=== PATIENT | female | born 1980 ===

== ENCOUNTER 2017-08-15 10:09 | Inpatient (IN) | payer OTHER ==
[2017-08-15 10:18] VITALS: BMI 31.6
--- NOTE | 2017-08-15 11:00 | ED PDOC ---
HPI: Headache Time Seen by Provider: 08/15/17 10:23 Chief Complaint (Nursing): Headache History Per: Patient, [employer] ([employer] [place] [id number]) History/Exam Limitations: language barrier Onset/Duration Of Symptoms: Days (2), Gradual Severity: Moderate Quality: Dull Preceeding Symptoms: None Associated Symptoms: Extremity Weakness (right arm). 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, 2 days ago pt awoke with right hand numbness and weakness sx are constant and unchanged pt states nml gait also facial numbness NIHSS Stroke Scale - Date/Time Evaluation Performed Date Performed: 08/15/17 When Was NIHSS Performed: Baseline - How Severe is the Stroke Level of Consciousness: 0=Alert LOC to Questions: 0=Both comments correct LOC to commands: 0=Obeys both correctly Best Gaze: 0=Normal Visual: 0=No visual loss Facial: 2=Partial (lower face paralysis) (chronic per pt) Motor Arm - Left: 0=No drift Motor Arm - Right: 1=Drift noted before 10 sec Motor Leg - Left: 0=No drift Motor Leg - Right: 0=No drift Limb Ataxia: 0=Absent Sensory: 0=Normal Best Language: 0=No aphasia Dysarthia: 0=Normal articulation Extinction & Inattention (Neglect): 0=Normal, no object Score: 3 Past Medical History Reviewed: Historical Data, Nursing Documentation, Vital Signs Vital Signs: Last Vital Signs Temp 97.7 F 08/15/17 10:19 Pulse 57 L 08/15/17 10:19 Resp 18 08/15/17 10:19 BP 123/87 08/15/17 10:19 Pulse Ox 97 08/15/17 10:19 - Medical History PMH: No Chronic Diseases - Family History Family History: States: Unknown Family Hx - Living Arrangements Living Arrangements: With Family - Social History Current smoker - smoking cessation education provided: No - Home Medications Home Medications: Ambulatory Orders Medication Instructions Recorded Multivitamin/Iron/Folic Acid 1 tab PO DAILY 08/15/17 [Centrum Complete Multivit Tab] - Allergies Allergies/Adverse Reactions: Allergies Allergy/AdvReac Type Severity Reaction Status Date / Time No Known Allergies Allergy Verified 08/15/17 10:28 Review of Systems ROS Statement: Except As Marked, All Systems Reviewed And Found Negative Constitutional: Negative for: Fever, Chills Eyes: Negative for: Vision Change Cardiovascular: Negative for: Chest Pain, Palpitations Respiratory: Negative for: Cough, Shortness of Breath Gastrointestinal: Negative for: Nausea, Vomiting, Abdominal Pain Musculoskeletal: Negative for: Neck Pain Neurological: Positive for: Weakness (right face chronic right arm new), Numbness (right facial and arm new). Negative for: Confusion, Seizures, Altered Mental Status, Headache, Dizziness Physical Exam - Reviewed Nursing Documentation Reviewed: Yes Vital Signs Reviewed: Yes - Physical Exam Appears: Positive for: Uncomfortable Head Exam: Positive for: ATRAUMATIC, NORMAL INSPECTION, NORMOCEPHALIC Eye Exam: Positive for: Normal appearance, EOMI, PERRL Neck: Positive for: Normal, Painless ROM, Supple Cardiovascular/Chest: Positive for: Regular Rate, Rhythm, Chest Non Tender. Negative for: Edema, Gallop, Murmur, Bradycardia, Tachycardia Respiratory: Positive for: Normal Breath Sounds. Negative for: Decreased Breath Sounds, Accessory Muscle Use, Crackles, Rhonchi, Stridor, Wheezing Pulses-Radial (L): 2+ Pulses-Radial (R): 2+ Gastrointestinal/Abdominal: Positive for: Normal Exam, Bowel Sounds, Soft. Negative for: Tenderness Back: Positive for: Normal Inspection. Negative for: L CVA Tenderness, R CVA Tenderness Extremity: Positive for: Normal ROM. Negative for: Tenderness, Pedal Edema, Calf Tenderness, Capillary Refill, Deformity, Swelling Neurologic/Psych: Positive for: Alert, tail board worker II-XII (right facial droop chrnic per pt all other nml), Oriented, Motor/Sensory Deficits (right arm with drift at 5 seconds), Mood/Affect, Cerebellar Tests (nml), Gait (steady), Facial Droop (right). Negative for: Aphasia - Laboratory Results Result Diagrams: 08/15/17 11:40 08/15/17 11:40 - ECG ECG: Positive for: Interpreted By Me ECG Rhythm: Positive for: Normal QRS, Normal ST Segment, Sinus Bradycardia (52) Interpretation Of Abn EKG: no evidence of ischemia O2 Sat by Pulse Oximetry: 97 Pulse Ox Interpretation: Normal - Radiology X-Ray: Interpreted by Me X-Ray Interpretation: No Acute Disease - Progress ED Course And Treament: per neuro will order mri and admit, hospitalist accepts/ pt not a tpa candidate due to out of treatment window Re-evaluation Time: 12:00 Condition: Improved Disposition - Clinical Impression Clinical Impression: CVA (cerebral vascular accident) - Patient ED Disposition Is Patient to be Admitted: Yes Counseled Patient/Family Regarding: Studies Performed, Diagnosis, Need For Followup - Disposition Disposition Time: 12:00 Condition: STABLE - Pt Status Changed To: Hospital Disposition Of: Observation - POA Present On Arrival: None
[2017-08-15 11:24] LABS: RBC URINE < 1 /hpf (0-3); URINE BACTERIA RARE (<OCC); URINE BILIRUBIN NEGATIVE (NEGATIVE); URINE BLOOD NEGATIVE (NEGATIVE); URINE COLOR YELLOW (YELLOW); URINE GLUCOSE (UA) NEG (Normal); URINE KETONE NEGATIVE (NEGATIVE); URINE LEUKOCYTE ESTERASE NEG Leu/uL (Negative); URINE PROTEIN NEGATIVE (NEGATIVE); URINE UROBILINOGEN 0.2-1.0 mg/dL (0.2-1.0); WBC URINE 1 /hpf (0-5)
--- NOTE | 2017-08-15 11:40 | CT ---
PROCEDURE: CT scan brain 08/15/2017 HISTORY: Weakness. COMPARISON: No prior study available for comparison TECHNIQUE: Axial computed tomography images were obtained through the head/brain without intravenous contrast. Radiation dose: Total exam DLP = 714.82 mGy-cm. This CT exam was performed using one or more of the following dose reduction techniques: Automated exposure control, adjustment of the mA and/or kV according to patient size, and/or use of iterative reconstruction technique. FINDINGS: HEMORRHAGE: No acute parenchymal, subarachnoid nor extra-axial hemorrhage. BRAIN: There is a somewhat wedge-shaped area of low attenuation involving the left posterior superior parietal cortical and subcortical white matter best seen on axial series 4 image number [id number] 33. While this could represent some volume averaging artifact, the possibility of an age-indeterminate infarct cannot be excluded. Followup MRI recommended VENTRICLES: No obstructive type hydrocephalus. CALVARIUM: No acute calvarial fractures PARANASAL SINUSES: Unremarkable as visualized. No significant inflammatory changes. MASTOID AIR CELLS: Unremarkable as visualized. No inflammatory changes. OTHER FINDINGS: None. IMPRESSION: No acute intracranial hemorrhage. . Questionable on age-indeterminate infarct left posterior superior parietal cortical/subcortical white matter near the vertex. Followup MRI recommended note these findings were discussed with Dr. Servin at approximately 11:40 a.m. with written down and read back verification.
[2017-08-15 11:45] LABS: BASO % 0.4 % (0.0-2.0); EOS # 0.2 K/uL (0.0-0.7); EOS % 3.2 % (0.0-4.0); HEMATOCRIT 30.6 % (34.0-47.0); LYMPH # 1.7 K/uL (1.0-4.3); LYMPH % 26.8 % (20.0-40.0); MEAN CELL VOLUME 69.9 fl (81.0-99.0); MEAN CORPUSCULAR HEMOGLOBIN 21.4 pg (27.0-31.0); MEAN CORPUSCULAR HGB CONC 30.6 g/dL (33.0-37.0); MEAN PLATELET VOLUME 9.8 fl (7.2-11.7); MONO # 0.4 K/uL (0.0-0.8); MONO % 6.1 % (0.0-10.0); NEUT # 4.1 K/uL (1.8-7.0); NEUT % 63.5 % (50.0-75.0); NRBC % 0.1 % (0.0-0.0); RED CELL DISTRIBUTION WIDTH 20.2 % (11.5-14.5); WHITE BLOOD COUNT 6.4 K/uL (4.8-10.8)
[2017-08-15 11:52] LABS: PARTIAL THROMBOPLASTIN TIME 31.1 Seconds (25.6-37.1)
[2017-08-15 12:00] LABS: ALB/GLOB RATIO 1.1 (1.0-2.1); ALKALINE PHOSPHATASE 69 U/L (38-126); ALT/SGPT 33 U/L (9-52); AST/SGOT 19 U/L (14-36); BILIRUBIN,TOTAL 0.2 mg/dl (0.2-1.3); BLOOD UREA NITROGEN 13 mg/dl (7-17); CARBON DIOXIDE 26 mmol/L (22-30); CHLORIDE 106 mmol/L (98-107); CHOLESTEROL 167 mg/dL (0-199); GFR AFRICAN-AMERICAN > 60; GLUCOSE,RANDOM 100 mg/dL (65-105); SODIUM 135 mmol/l (132-148); TOTAL PROTEIN 7.1 G/DL (6.3-8.2)
--- NOTE | 2017-08-15 12:31 | RAD ---
HISTORY: weak COMPARISON: No prior. FINDINGS: LUNGS: No active pulmonary disease. PLEURA: No significant pleural effusion identified, no pneumothorax apparent. CARDIOVASCULAR: Normal. OSSEOUS STRUCTURES: No significant abnormalities. VISUALIZED UPPER ABDOMEN: Normal. OTHER FINDINGS: None. IMPRESSION: No active disease.
--- NOTE | 2017-08-15 13:10 | CP.PCM.HP ---
History of Present Illness - History of Present Illness History of Present Illness: 37 year old female with no PMHx of chronic right sided facial droop x 16 years seen in ED complaining of right arm numbness and weakness. Patient states that two days ago she had a severe headache that worsened yesterday and was accompanied with tingling, numbness and paralysis in her right arm to the point that she can not write properly. Patient also states that she has numbness in the left side of her neck. She denies any recent head trauma, history of head trauma or history of stroke. She denies any further complaints at this time and says that her headache has diminished. Patient states that her chronic facial paralysis began after she moved to [place] 16 years ago and she was told by doctors that it was due to the stress of leaving her son back in her home country. Patient states that with physical therapy the paralysis improved but that she never fully recovered her motor abilities in her face. She denies N/V/F /C/CP/SOB/posterior calf pain/abdominal pain/constipation/ urinary retention. She denies abnormal gait. Meds: Denies All: NKDA PSH: FH: Unremarkable SH: Denies tobacco, ETOH and illicit drug use Present on Admission - Present on Admission Any Indicators Present on Admission: No Review of Systems - Review of Systems Review of Systems: ROS as per HPI. All other systems reviewed and found to be negative Past Patient History - Past Social History Smoking Status: Never Smoked - CARDIAC Hx Cardiac Disorders: No - PULMONARY Hx Respiratory Disorders: No - NEUROLOGICAL Hx Neurological Disorder: Yes (Facial paralysis) - HEENT Hx HEENT Problems: No - RENAL Hx Chronic Kidney Disease: No - ENDOCRINE/METABOLIC Hx Endocrine Disorders: No - HEMATOLOGICAL/ONCOLOGICAL Hx Blood Disorders: No - INTEGUMENTARY Hx Dermatological Problems: No - MUSCULOSKELETAL/RHEUMATOLOGICAL Hx Musculoskeletal Disorders: No - GENITOURINARY/GYNECOLOGICAL Hx Genitourinary Disorders: No - PSYCHIATRIC Hx Psychophysiologic Disorder: No - SURGICAL HISTORY Hx Surgeries: No - ANESTHESIA Hx Anesthesia: No Meds Allergies/Adverse Reactions: Allergies Allergy/AdvReac Type Severity Reaction Status Date / Time No Known Allergies Allergy Verified 08/15/17 10:28 Physical Exam - Constitutional Appears: Well, Non-toxic, No Acute Distress - Head Exam Head Exam: ATRAUMATIC, NORMOCEPHALIC - Eye Exam Eye Exam: EOMI, PERRL Pupil Exam: PERRL - ENT Exam ENT Exam: Mucous Membranes Moist - Neck Exam Additional comments: Paresthesia to left side of neck - Respiratory Exam Respiratory Exam: Clear to Auscultation Bilateral, NORMAL BREATHING PATTERN - Cardiovascular Exam Cardiovascular Exam: REGULAR RHYTHM - GI/Abdominal Exam GI & Abdominal Exam: Soft. absent: Distended, Firm, Guarding - Rectal Exam Rectal Exam: Deferred - Extremities Exam Additional comments: Right sided upper extremity weakness. Numbness noted to right arm from shoulder to distal fingers. Minimal loss of coordination with right upper extremity - Neurological Exam Neurological exam: Alert, Motor Sensory Deficit, Oriented x3 - Psychiatric Exam Psychiatric exam: Normal Affect, Normal Mood - Skin Skin Exam: Intact, Normal Color, Warm Results - Vital Signs Recent Vital Signs: Last Vital Signs Temp 97.7 F 08/15/17 10:19 Pulse 57 L 08/15/17 10:19 Resp 18 08/15/17 10:19 BP 123/87 08/15/17 10:19 Pulse Ox 97 08/15/17 11:02 - Labs Result Diagrams: 08/15/17 11:40 08/15/17 11:40 Labs: Laboratory Results - last 24 hr 08/15/17 08/15/17 08/15/17 10:44 11:08 11:40 WBC RBC Hgb Hct MCV MCH MCHC RDW Plt Count MPV Neut % (Auto) Lymph % (Auto) [place] % (Auto) Eos % (Auto) Baso % (Auto) Neut # Lymph # [place] # Eos # Baso # PT INR APTT Sodium 135 Potassium 4.0 Chloride 106 Carbon Dioxide 26 Anion Gap 7 L BUN 13 Creatinine 0.6 L Est GFR ( Amer) > 60 Est GFR (Non-Af Amer) > 60 POC Glucose (mg/dL) 93 Random Glucose 100 Calcium 9.0 Total Bilirubin 0.2 AST 19 ALT 33 Alkaline Phosphatase 69 Troponin I < 0.0120 NT-Pro-B Natriuret Pep 96.1 Total Protein 7.1 Albumin 3.8 Globulin 3.3 Albumin/Globulin Ratio 1.1 Triglycerides 135 Cholesterol 167 LDL Cholesterol Direct 91 HDL Cholesterol 38 Urine Color Yellow Urine Clarity Cloudy Urine pH 6.0 Ur Specific [place] 1.011 Urine Protein Negative Urine Glucose (UA) Neg Urine Ketones Negative Urine Blood Negative Urine Nitrate Negative Urine Bilirubin Negative Urine Urobilinogen 0.2-1.0 Ur Leukocyte Esterase Neg Urine RBC (Auto) < 1 Urine Microscopic WBC 1 Ur Squamous Epith Cells 2 Urine Bacteria Rare Blood Type Blood Type Confirm Antibody Screen BBK History Checked 08/15/17 08/15/17 08/15/17 11:40 11:40 11:40 WBC 6.4 RBC 4.38 Hgb 9.4 L Hct 30.6 L MCV 69.9 L D MCH 21.4 L MCHC 30.6 L RDW 20.2 H Plt Count 293 MPV 9.8 Neut % (Auto) 63.5 Lymph % (Auto) 26.8 [place] % (Auto) 6.1 Eos % (Auto) 3.2 Baso % (Auto) 0.4 Neut # 4.1 Lymph # 1.7 [place] # 0.4 Eos # 0.2 Baso # 0.0 PT 10.9 INR 1.0 APTT 31.1 Sodium Potassium Chloride Carbon Dioxide Anion Gap BUN Creatinine Est GFR ( Amer) Est GFR (Non-Af Amer) POC Glucose (mg/dL) Random Glucose Calcium Total Bilirubin AST ALT Alkaline Phosphatase Troponin I NT-Pro-B Natriuret Pep Total Protein Albumin Globulin Albumin/Globulin Ratio Triglycerides Cholesterol LDL Cholesterol Direct HDL Cholesterol Urine Color Urine Clarity Urine pH Ur Specific [place] Urine Protein Urine Glucose (UA) Urine Ketones Urine Blood Urine Nitrate Urine Bilirubin Urine Urobilinogen Ur Leukocyte Esterase Urine RBC (Auto) Urine Microscopic WBC Ur Squamous Epith Cells Urine Bacteria Blood Type O POSITIVE Blood Type Confirm Antibody Screen Negative BBK History Checked No verified bt 08/15/17 12:00 WBC RBC Hgb Hct MCV MCH MCHC RDW Plt Count MPV Neut % (Auto) Lymph % (Auto) [place] % (Auto) Eos % (Auto) Baso % (Auto) Neut # Lymph # [place] # Eos # Baso # PT INR APTT Sodium Potassium Chloride Carbon Dioxide Anion Gap BUN Creatinine Est GFR ( Amer) Est GFR (Non-Af Amer) POC Glucose (mg/dL) Random Glucose Calcium Total Bilirubin AST ALT Alkaline Phosphatase Troponin I NT-Pro-B Natriuret Pep Total Protein Albumin Globulin Albumin/Globulin Ratio Triglycerides Cholesterol LDL Cholesterol Direct HDL Cholesterol Urine Color Urine Clarity Urine pH Ur Specific [place] Urine Protein Urine Glucose (UA) Urine Ketones Urine Blood Urine Nitrate Urine Bilirubin Urine Urobilinogen Ur Leukocyte Esterase Urine RBC (Auto) Urine Microscopic WBC Ur Squamous Epith Cells Urine Bacteria Blood Type Blood Type Confirm O POSITIVE Antibody Screen BBK History Checked Assessment & Plan - Assessment and Plan (Free Text) Assessment: 37 year old female with history of right sided facial parasthesia seen in ED for new onset right arm numbness and weakness. Head CT performed with f/u carotid artery US and MRI of brain showing multiple small foci of diffusion restriction in the left brain with the largest focus seen at the posterior left parietal lobe. Findings suggestive of acute embolic infarctions. No evidence of acute intracranial hemmorhage, mass effect or midline shift. Echo with bubble study ordered to r/o foramen ovale and thrombus Plan: 1. Right arm numbness and weakness, acute - R/o CVA - Head CT: No acute intracranial hemmorhage. Questionable on age indeterminate infarct left posterior superior parietal cortical/subcortical white matter near the vertex. F/u MRI recommended - MRI brain doppler: Multiple small foci of diffusion restriction in the left brain with the largest focus seen at the posterior left parietal lobe. Findings suggestive of acute embolic infarctions. No evidence of acute intracranial hemmorhage, mass effect or midline shift. - Carotid artery US: No acute abnormalities noted - Neurologist consult placed - F/u echo with bubble study to r/o foramen ovale and thrombus - Admit to tele - Aspirin 300 mg qd - Continue [employer] Healthy diet - Neuro check q4 - Vital signs q4 2. DVT prophylaxis - SCDs - Cont Aspirin - Date & Time Date: 08/15/17 Time: 15:13
--- NOTE | 2017-08-15 13:25 | US ---
PROCEDURE: Duplex ultrasound of the carotid and vertebral arteries. HISTORY: right arm numbness COMPARISON: None available. TECHNIQUE: Grayscale and duplex Doppler evaluation of the cervical carotid and vertebral arteries were performed. The common carotid, carotid bifurcations and cervical ICA and proximal ECA were evaluated. The vertebral arteries were evaluated for gross patency and direction. FINDINGS: RIGHT CAROTID ARTERIES: Common Carotid Artery: Normal. Maximal flow velocity of 109.2 cm/s. Carotid Bifurcation: Normal. Internal Carotid Artery:Normal. Maximal flow velocity of 90.3 cm/s. External Carotid Artery (proximal branches): Normal. Maximal flow velocity of 133.4 cm/s. ICA/CCA Ratio: 0.8 LEFT CAROTID ARTERIES: Common Carotid Artery: Normal. Maximal flow velocity of 117.7 cm/s. Carotid Bifurcation: Normal. Internal Carotid Artery:Normal. Maximal flow velocity of 76.2 cm/s. External Carotid Artery (proximal branches): Normal. Maximal flow velocity of 92.4 cm/s. ICA/CCA Ratio: 0.6 VERTEBRAL ARTERIES: Right Vertebral Artery: Patent. Antegrade flow. Left Vertebral Artery: Patent. Antegrade flow. OTHER FINDINGS: None. IMPRESSION: Normal Duplex Doppler of the cervical carotid and vertebral arteries.
--- NOTE | 2017-08-15 14:53 | MRI ---
PROCEDURE: MRI BRAIN WITHOUT CONTRAST HISTORY: right sided weakness COMPARISON: Comparison is made to previous same-day CT of the head without TECHNIQUE: Multiplanar, multisequence MR images of the brain were obtained without intravenous contrast enhancement. FINDINGS: HEMORRHAGE: None DWI: There are multiple small foci of diffusion restriction noted in the left brain. The largest focus is seen at the left posterior parietal lobe. There are also small foci of diffusion restriction seen at the left frontal and parietal lobe. Findings suggestive of embolic infarction. BRAIN PARENCHYMA: No mass effect or edema. No atrophy or chronic microvascular ischemic changes. VENTRICLES: Unremarkable. No hydrocephalus. CRANIUM: Unremarkable. ORBITS: Grossly unremarkable. PARANASAL SINUSES/MASTOIDS: Clear VASCULAR SYSTEM: Skull base flow voids intact. OTHER FINDINGS: None. IMPRESSION: Multiple small foci of diffusion restriction in the left brain with the largest focus is seen at the posterior left parietal lobe. Findings suggestive of acute embolic infarctions. No evidence of acute intracranial hemorrhage mass effect or midline shift. The above findings were reported to and discussed with the emergency room physician Dr. Servin at 2:45 p.m. on 08/15/2017.
--- NOTE | 2017-08-15 21:09 | CP.PCM.CON ---
History of Present Illness - History of Present Illness History of Present Illness: Ms. Bowman is a 37-year-old woman with a previous history of chronic left facial droop that occurred about 16 years ago when she first moved to this country, but has not had any other significant health issues since. She states that on Tuesday, she developed the sudden onset of a headache that was associated with right side face, arm and leg tingling and weakness. She presented to the ED today and an MRI of the brain was done, which showed multiple acute appearing left frontal/parietal lobe infarcts. She was started on aspirin, statin and admitted for stroke work-up. When I saw the patient, she denied headache, and did not have any neck pain/stiffness. She denied nausea, visual changes, photophobia, hearing loss, or vertigo. Review of Systems - Review of Systems All systems: reviewed and no additional remarkable complaints except Past Patient History - Past Medical History & Family History Past Medical History?: Yes - Past Social History Smoking Status: Never Smoked - CARDIAC Hx Cardiac Disorders: No - PULMONARY Hx Respiratory Disorders: No - NEUROLOGICAL Hx Neurological Disorder: Yes (Facial paralysis) - HEENT Hx HEENT Problems: No - RENAL Hx Chronic Kidney Disease: No - ENDOCRINE/METABOLIC Hx Endocrine Disorders: No - HEMATOLOGICAL/ONCOLOGICAL Hx Blood Disorders: No - INTEGUMENTARY Hx Dermatological Problems: No - MUSCULOSKELETAL/RHEUMATOLOGICAL Hx Musculoskeletal Disorders: No Hx Falls: No - GENITOURINARY/GYNECOLOGICAL Hx Genitourinary Disorders: No - PSYCHIATRIC Hx Psychophysiologic Disorder: No Hx Substance Use: No - SURGICAL HISTORY Hx Surgeries: No - ANESTHESIA Hx Anesthesia: No Meds Allergies/Adverse Reactions: Allergies Allergy/AdvReac Type Severity Reaction Status Date / Time No Known Allergies Allergy Verified 08/15/17 10:28 - Medications Medications: Current Medications Acetaminophen (Tylenol 325mg Tab) 650 mg PO Q6 PRN PRN Reason: Pain, Mild (1-3) Acetaminophen (Tylenol 325mg Tab) 650 mg PO Q6 PRN PRN Reason: Fever >100.4 F Aspirin (Aspirin Supp) 300 mg [place] DAILY [facility] Last Admin: 08/15/17 14:40 Dose: Not Given Aspirin (Aspirin Chewable) 81 mg PO DAILY [facility] Atorvastatin Calcium (Lipitor) 20 mg PO HS [facility] Enoxaparin Sodium (Lovenox) 40 mg SC DAILY [facility] PRN Reason: Protocol Ondansetron HCl (Zofran Inj) 4 mg IVP Q6 PRN PRN Reason: Nausea/Vomiting Pantoprazole Sodium (Protonix Ec Tab) 40 mg PO DAILY [facility] Physical Exam - Constitutional Appears: Well - Head Exam Head Exam: ATRAUMATIC, NORMAL INSPECTION, NORMOCEPHALIC - Eye Exam Eye Exam: EOMI, Normal appearance, PERRL - ENT Exam ENT Exam: Mucous Membranes Moist, Normal Exam - Neck Exam Neck exam: Positive for: Normal Inspection - Respiratory Exam Respiratory Exam: Clear to Auscultation Bilateral, NORMAL BREATHING PATTERN - Cardiovascular Exam Cardiovascular Exam: REGULAR RHYTHM, +S1, +S2 - GI/Abdominal Exam GI & Abdominal Exam: Normal Bowel Sounds, Soft. absent: Tenderness - Rectal Exam Rectal Exam: Deferred - Extremities Exam Extremities exam: Positive for: normal inspection - Neurological Exam Neurological exam: Alert, CN II-XII Intact, Normal Gait, Oriented x3 Additional comments: NIHSS = 3 - Expanded Neurological Exam Expanded Patient oriented to: person, place, time Cranial nerves: EOM's Intact: Normal, Facial Sensation: Abnormal Right, Nystagmus: Normal, Tongue Deviation: Normal Cerebellar Function: Finger to Nose: Abnormal Right Upper motor neuron: Babinski Sign: Abnormal Right, Pronator Drift: Abnormal Right Sensory exam: Lower Extremity Light Touch: Abnormal Right, Lower Extremity Pin Prick: Abnormal Right, Upper Extremity Light Touch: Abnormal Right, Upper Extremity Pin Prick: Abnormal Right Neuro motor strength exam: Left Upper Extremity: 5, Right Upper Extremity: 4, Left Lower Extremity: 5, Right Lower Extremity: 4 DTR: Bicep Left: 3+, Bicep Right: 3+, Patellar Left: 3+, Patellar Right: 3+ - Psychiatric Exam Psychiatric exam: Normal Affect, Normal Mood - Skin Skin Exam: Dry, Intact, Normal Color, Warm Results - Vital Signs Recent Vital Signs: Last Vital Signs Temp 98.9 F 08/15/17 19:26 Pulse 58 L 08/15/17 19:26 Resp 17 08/15/17 19:26 BP 100/65 08/15/17 19:26 Pulse Ox 98 08/15/17 19:26 - Labs Result Diagrams: 08/15/17 11:40 08/15/17 11:40 Labs: Laboratory Results - last 24 hr 08/15/17 08/15/17 08/15/17 10:44 11:08 11:40 WBC RBC Hgb Hct MCV MCH MCHC RDW Plt Count MPV Neut % (Auto) Lymph % (Auto) Parmer % (Auto) Eos % (Auto) Baso % (Auto) Neut # Lymph # Parmer # Eos # Baso # PT INR APTT Sodium 135 Potassium 4.0 Chloride 106 Carbon Dioxide 26 Anion Gap 7 L BUN 13 Creatinine 0.6 L Est GFR ( Amer) > 60 Est GFR (Non-Af Amer) > 60 POC Glucose (mg/dL) 93 Random Glucose 100 Hemoglobin A1c Calcium 9.0 Total Bilirubin 0.2 AST 19 ALT 33 Alkaline Phosphatase 69 Troponin I < 0.0120 NT-Pro-B Natriuret Pep 96.1 Total Protein 7.1 Albumin 3.8 Globulin 3.3 Albumin/Globulin Ratio 1.1 Triglycerides 135 Cholesterol 167 LDL Cholesterol Direct 91 HDL Cholesterol 38 Vitamin B12 25-OH Vitamin D Total Urine Color Yellow Urine Clarity Cloudy Urine pH 6.0 Ur Specific Overton 1.011 Urine Protein Negative Urine Glucose (UA) Neg Urine Ketones Negative Urine Blood Negative Urine Nitrate Negative Urine Bilirubin Negative Urine Urobilinogen 0.2-1.0 Ur Leukocyte Esterase Neg Urine RBC (Auto) < 1 Urine Microscopic WBC 1 Ur Squamous Epith Cells 2 Urine Bacteria Rare Blood Type Blood Type Confirm Antibody Screen BBK History Checked 08/15/17 08/15/17 08/15/17 11:40 11:40 11:40 WBC 6.4 RBC 4.38 Hgb 9.4 L Hct 30.6 L MCV 69.9 L D MCH 21.4 L MCHC 30.6 L RDW 20.2 H Plt Count 293 MPV 9.8 Neut % (Auto) 63.5 Lymph % (Auto) 26.8 Parmer % (Auto) 6.1 Eos % (Auto) 3.2 Baso % (Auto) 0.4 Neut # 4.1 Lymph # 1.7 Parmer # 0.4 Eos # 0.2 Baso # 0.0 PT 10.9 INR 1.0 APTT 31.1 Sodium Potassium Chloride Carbon Dioxide Anion Gap BUN Creatinine Est GFR ( Amer) Est GFR (Non-Af Amer) POC Glucose (mg/dL) Random Glucose Hemoglobin A1c 5.3 Calcium Total Bilirubin AST ALT Alkaline Phosphatase Troponin I NT-Pro-B Natriuret Pep Total Protein Albumin Globulin Albumin/Globulin Ratio Triglycerides Cholesterol LDL Cholesterol Direct HDL Cholesterol Vitamin B12 25-OH Vitamin D Total Urine Color Urine Clarity Urine pH Ur Specific Overton Urine Protein Urine Glucose (UA) Urine Ketones Urine Blood Urine Nitrate Urine Bilirubin Urine Urobilinogen Ur Leukocyte Esterase Urine RBC (Auto) Urine Microscopic WBC Ur Squamous Epith Cells Urine Bacteria Blood Type Blood Type Confirm Antibody Screen BBK History Checked 08/15/17 08/15/17 08/15/17 11:40 12:00 18:27 WBC RBC Hgb Hct MCV MCH MCHC RDW Plt Count MPV Neut % (Auto) Lymph % (Auto) Parmer % (Auto) Eos % (Auto) Baso % (Auto) Neut # Lymph # Parmer # Eos # Baso # PT INR APTT Sodium Potassium Chloride Carbon Dioxide Anion Gap BUN Creatinine Est GFR ( Amer) Est GFR (Non-Af Amer) POC Glucose (mg/dL) Random Glucose Hemoglobin A1c 5.3 Calcium Total Bilirubin AST ALT Alkaline Phosphatase Troponin I NT-Pro-B Natriuret Pep Total Protein Albumin Globulin Albumin/Globulin Ratio Triglycerides Cholesterol LDL Cholesterol Direct HDL Cholesterol Vitamin B12 25-OH Vitamin D Total Urine Color Urine Clarity Urine pH Ur Specific Overton Urine Protein Urine Glucose (UA) Urine Ketones Urine Blood Urine Nitrate Urine Bilirubin Urine Urobilinogen Ur Leukocyte Esterase Urine RBC (Auto) Urine Microscopic WBC Ur Squamous Epith Cells Urine Bacteria Blood Type O POSITIVE Blood Type Confirm O POSITIVE Antibody Screen Negative BBK History Checked No verified bt 08/15/17 08/15/17 18:29 18:29 WBC RBC Hgb Hct MCV MCH MCHC RDW Plt Count MPV Neut % (Auto) Lymph % (Auto) Parmer % (Auto) Eos % (Auto) Baso % (Auto) Neut # Lymph # Parmer # Eos # Baso # PT INR APTT Sodium Potassium Chloride Carbon Dioxide Anion Gap BUN Creatinine Est GFR ( Amer) Est GFR (Non-Af Amer) POC Glucose (mg/dL) Random Glucose Hemoglobin A1c Calcium Total Bilirubin AST ALT Alkaline Phosphatase Troponin I NT-Pro-B Natriuret Pep Total Protein Albumin Globulin Albumin/Globulin Ratio Triglycerides Cholesterol LDL Cholesterol Direct HDL Cholesterol Vitamin B12 > 1000 H 25-OH Vitamin D Total 24.7 L Urine Color Urine Clarity Urine pH Ur Specific Overton Urine Protein Urine Glucose (UA) Urine Ketones Urine Blood Urine Nitrate Urine Bilirubin Urine Urobilinogen Ur Leukocyte Esterase Urine RBC (Auto) Urine Microscopic WBC Ur Squamous Epith Cells Urine Bacteria Blood Type Blood Type Confirm Antibody Screen BBK History Checked Assessment & Plan (1) CVA (cerebral vascular accident) Assessment and Plan: Due to the patient's complaints of severe headache, and MRI of the brain consistent with acute ischemic stroke, we must consider the causes of cryptogenic stroke in a young patient. The differential includes reversible vasoconstriction syndrome, PACNS, cardio-embolic etiology, hypercoagulable states, as well as dissections. In addition to the labs/imaging that have already been done, I recommend the followin. Telemetry 2. Echocardiogram with bubble study 3. CTA of the head/neck 4. Hypercoagulable work-up 5. ESR/CRP, B12, folate, TSH/T3/T4, Vitamin D, prothrombin gene, factor V leiden , etc. 6. Prolonged cardiac monitoring 7. Aspirin 81 mg daily and Plavix 75 mg daily for 3 weeks per the CHANCE trial, then continue only aspirin 81 mg daily indefinitely 8. Lipitor 40 mg daily to maintain LDL< 70 9. PT/OT eval and treatment 10. Fluids with NS at 100 mL/hr 11. DVT Px 12. Case management consult Thank you. Status: Acute Priority: High
[2017-08-15 21:45] LABS: FOLATE > 20.0 ng/mL
[2017-08-16 05:24] LABS: HOMOCYSTEINE 5.5 umol/L (<10.4)
[2017-08-16 05:25] LABS: BASO % 0.3 % (0.0-2.0); EOS # 0.3 K/uL (0.0-0.7); EOS % 4.1 % (0.0-4.0); HEMATOCRIT 29.7 % (34.0-47.0); LYMPH # 2.9 K/uL (1.0-4.3); MEAN CELL VOLUME 70.2 fl (81.0-99.0); MEAN CORPUSCULAR HEMOGLOBIN 20.7 pg (27.0-31.0); MEAN CORPUSCULAR HGB CONC 29.4 g/dL (33.0-37.0); MEAN PLATELET VOLUME 9.2 fl (7.2-11.7); MONO # 0.6 K/uL (0.0-0.8); MONO % 8.8 % (0.0-10.0); NEUT % 43.8 % (50.0-75.0); NRBC % 0.2 % (0.0-0.0); RED CELL DISTRIBUTION WIDTH 19.9 % (11.5-14.5); WHITE BLOOD COUNT 6.8 K/uL (4.8-10.8)
[2017-08-16 05:49] LABS: BLOOD UREA NITROGEN 14 mg/dl (7-17); CALCIUM 8.8 mg/dL (8.4-10.2); CARBON DIOXIDE 27 mmol/L (22-30); CHLORIDE 106 mmol/L (98-107); GFR AFRICAN-AMERICAN > 60; GLUCOSE,RANDOM 85 mg/dL (65-105); POTASSIUM 4.2 MMOL/L (3.6-5.0); SODIUM 140 mmol/l (132-148)
[2017-08-16] MEDS: Enoxaparin 40 mg Syringe SC SCH (08:59)
[2017-08-16] MEDS: Pantoprazole 40 mg EC Tab PO SCH (09:00)
[2017-08-16 11:23] LABS: IRON 16 ug/dL (37-170)
--- NOTE | 2017-08-16 11:27 | CP.PCM.PN ---
Subjective - Date & Time of Evaluation Date of Evaluation: 08/16/17 Time of Evaluation: 11:22 - Subjective Subjective: 37 year old female with PMHx of chronic right sided facial droop x 16 years seen at bedside for acute embolic CVA. Patient is AAO x 3 and NAD resting comfortably in bed. States that she does not have a headache today and that her right arm weakness/numbness is improved. Patient also states that one year ago she saw a specialist for exceptionally heavy menstrual flow. States that she currently is menstruating x 4 days and needs to change her pad every half hour. Patient takes iron supplements for this condition. Denies any acute overnight events or new symptoms. Denies N/V/F/C/CP/SOB/posterior calf pain/constipation/ urinary retention. Objective - Vital Signs/Intake and Output Vital Signs (last 24 hours): Temp Pulse Resp BP Pulse Ox 98.4 F 87 18 105/71 99 08/16/17 07:56 08/16/17 07:56 08/16/17 07:56 08/16/17 07:56 08/16/17 07:56 - Medications Medications: Current Medications Acetaminophen (Tylenol 325mg Tab) 650 mg PO Q6 PRN PRN Reason: Pain, Mild (1-3) Last Admin: 08/15/17 22:18 Dose: 650 mg Acetaminophen (Tylenol 325mg Tab) 650 mg PO Q6 PRN PRN Reason: Fever >100.4 F Aspirin (Aspirin Supp) 300 mg [place] DAILY [facility] Last Admin: 08/15/17 14:40 Dose: Not Given Aspirin (Aspirin Chewable) 81 mg PO DAILY [facility] Last Admin: 08/16/17 08:59 Dose: 81 mg Atorvastatin Calcium (Lipitor) 40 mg PO DAILY [facility] Clopidogrel Bisulfate (Plavix) 75 mg PO DAILY [facility] Enoxaparin Sodium (Lovenox) 40 mg SC DAILY [facility] PRN Reason: Protocol Last Admin: 08/16/17 08:59 Dose: 40 mg Ondansetron HCl (Zofran Inj) 4 mg IVP Q6 PRN PRN Reason: Nausea/Vomiting Pantoprazole Sodium (Protonix Ec Tab) 40 mg PO DAILY [facility] Last Admin: 08/16/17 09:00 Dose: 40 mg - Labs Labs: 08/16/17 04:50 08/16/17 04:50 PT 10.9 Seconds (9.8-13.1) 08/15/17 11:40 INR 1.0 (0.9-1.2) 08/15/17 11:40 APTT 31.1 Seconds (25.6-37.1) 08/15/17 11:40 - Constitutional Appears: Well, Non-toxic, No Acute Distress - Head Exam Head Exam: ATRAUMATIC, NORMOCEPHALIC - Eye Exam Eye Exam: EOMI, PERRL Pupil Exam: PERRL - ENT Exam ENT Exam: Mucous Membranes Moist - Neck Exam Neck Exam: Normal Inspection. absent: Tenderness - Respiratory Exam Respiratory Exam: Clear to Ausculation Bilateral, NORMAL BREATHING PATTERN - Cardiovascular Exam Cardiovascular Exam: REGULAR RHYTHM - Rectal Exam Rectal Exam: Deferred - Extremities Exam Extremities Exam: Normal Capillary Refill, Normal Inspection - Neurological Exam Neurological Exam: Alert, Awake, Oriented x3 - Psychiatric Exam Psychiatric exam: Normal Affect, Normal Mood - Skin Skin Exam: Intact, Normal Color, Warm Assessment and Plan - Assessment and Plan (Free Text) Assessment: 37 year old female with history of right sided facial parasthesia seen in ED on 08/15 for new onset right arm numbness and weakness. Head CT performed with f/u carotid artery US and MRI of brain showing multiple small foci of diffusion restriction in the left brain with the largest focus seen at the posterior left parietal lobe. Findings suggestive of acute embolic infarctions. No evidence of acute intracranial hemmorhage, mass effect or midline shift. Carotid artery US 08/26: Normal duplex doppler of the cervical carotid and vertebral arteries. Brain MRI 08/16 shows multiple small foci of diffusion restriction in the left brain with the largest focus seen at the posterior left parietal lobe. Findings suggestive of acute embolic infarctions. Echo with bubble study ordered to r/o foramen ovale and thrombus. Results pending. Anemia workup and testing for hypercoagulable state ordered and pending. Plan: 1. Acute embolic CVA - Cardiology Consult: Dr. Ryan - Neuro Consult: Dr. Gimenez - Head CT: No acute intracranial hemmorhage. Questionable on age indeterminate infarct left posterior superior parietal cortical/subcortical white matter near the vertex. F/u MRI recommended - MRI brain doppler: Multiple small foci of diffusion restriction in the left brain with the largest focus seen at the posterior left parietal lobe. Findings suggestive of acute embolic infarctions. No evidence of acute intracranial hemmorhage, mass effect or midline shift. - Carotid artery US: No acute abnormalities noted - F/u Echo with bubble study - Continue Aspirin 81 mg PO daily - Continue Lipitor 40 mg PO daily - Continue Plavix 75 mg PO daily - Continue Lovenox 40 mg SC daily - PT/PTT/INR: 10.9/1.0/31.1 - F/u hypercoagulable workup - F/u drug screen - F/u BNP - F/u Beta HCG - F/u CRP - F/u ESR -F/u CTA head and neck - Homocysteine: 5.5 - Neuro check q4 - Vital signs q4 - Continue PT eval and treat 2. Anemia - H/H, 8.8/29.7 - Microcytic in nature - Iron: 16 - TIBC: 376 - % saturation: pending - Retic count 1.5 - F/u Ferritin - F/u Transferrin - Continue at home multivitamin/iron supplement - Monitor 3. DVT prophylaxis - SCDs - Continue Aspirin, Lipitor, Plavix
[2017-08-16] MEDS ORDERED: Iodixanol 320 MG/ML 100 ML BOTTLE IV ONE (12:00)
--- NOTE | 2017-08-16 15:54 | CT ---
PROCEDURE: CTA HEAD AND NECK WITH CONTRAST HISTORY: embolic stroke COMPARISON: Duplex ultrasound of the carotid arteries from 08/15/2017 TECHNIQUE: Initial noncontrast head CT was performed. Subsequently, CT angiogram of the head and neck were performed after the intravenous administration of 80 mL of Omnipaque 350. Contiguous 1.5mm thick images were obtained in the axial plane of the neck. 2-D coronal and sagittal MPR images were obtained. Imaging postprocessing was performed with 3-D images also obtained. A delayed contrast head CT was also obtained. This CT exam was performed using one or more of the following dose reduction techniques: Automated exposure control, adjustment of the mA and/or kV according to patient size, and/or use of iterative reconstruction technique. Contrast dose: 95 cc Visipaque 320 Radiation dose: Total exam DLP = 1061.02 mGy-cm. FINDINGS: This examination is of suboptimal diagnostic quality due to missed bolus. HEAD: Right: The intracranial internal carotid artery, and anterior and middle cerebral arteries are widely patent. Left: The intracranial internal carotid artery is widely patent. There is segmental severe narrowing of the proximal M1 segment and focal narrowing of the proximal A1 segment. Bilateral M2 branches are symmetric and patent. Posterior circulation: The visualized intracranial vertebral arteries, basilar artery and posterior cerebral arteries are widely patent. The right vertebral artery is hypoplastic, an anatomic variant Ther is no endoluminal filling defect to suggest thrombus. There is no intracranial saccular aneurysm. There is no abnormal enhancement on the postcontrast CT. NECK: There is a three vessel aortic arch. There is no stenosis at the origins of the great vessels at the level of the aortic arch. Right Carotid: On the right, the common carotid, internal carotid and external carotid arteries are widely patent. There is no hemodynamically significant stenosis in the internal carotid arteries. Left Carotid: On the left, the common carotid, internal carotid and external carotid arteries are widely patent.There is no hemodynamically significant stenosis in the internal carotid arteries. The vertebral arteries are widely patent. The right vertebral artery is hypoplastic, an anatomic variant. The visualized soft tissues of the neck are normal. The visualized brain and cervical spine are within normal limits. The lung apices are clear. IMPRESSION: 1. Segmental severe narrowing in the left proximal M1 segment and focal narrowing in the left proximal A1 segment. Mild narrowing of the distal left M1 segment. Findings are likely related to segmental thrombosis however vasculitis is also a differential consideration in this age group. If clinically indicated, correlation with conventional angiogram may be performed. 2. No evidence of hemodynamically significant stenosis in the internal carotid arteries. 3. Patent bilateral vertebral arteries. The right vertebral artery is hypoplastic, an anatomic variant. 4. No evidence of occlusion or definite significant stenosis in the right anterior cerebral and middle cerebral arteries. Widely patent posterior circulation. Critical findings were discussed with Dr. Shay Gimenez on 08/16/2017 at 3:45 p.m.
--- NOTE | 2017-08-16 15:56 | CP.PCM.PN ---
Subjective - Date & Time of Evaluation Date of Evaluation: 08/16/17 Time of Evaluation: 14:00 - Subjective Subjective: Mrs. Bowman was seen and examined today at bedside. She continued to have facial droop and paresthesias, but said that the weakness is improving. There were no acute events overnight. There were no acute events overnight. Objective - Vital Signs/Intake and Output Vital Signs (last 24 hours): Temp Pulse Resp BP Pulse Ox 98.8 F 67 20 104/70 100 08/16/17 15:36 08/16/17 15:36 08/16/17 15:36 08/16/17 15:36 08/16/17 15:36 - Medications Medications: Current Medications Acetaminophen (Tylenol 325mg Tab) 650 mg PO Q6 PRN PRN Reason: Pain, Mild (1-3) Last Admin: 08/15/17 22:18 Dose: 650 mg Acetaminophen (Tylenol 325mg Tab) 650 mg PO Q6 PRN PRN Reason: Fever >100.4 F Aspirin (Aspirin Chewable) 81 mg PO DAILY [facility] Last Admin: 08/16/17 08:59 Dose: 81 mg Atorvastatin Calcium (Lipitor) 40 mg PO DAILY [facility] Last Admin: 08/16/17 13:59 Dose: 40 mg Clopidogrel Bisulfate (Plavix) 75 mg PO DAILY [facility] Last Admin: 08/16/17 14:04 Dose: 75 mg Enoxaparin Sodium (Lovenox) 40 mg SC DAILY [facility] PRN Reason: Protocol Last Admin: 08/16/17 08:59 Dose: 40 mg Iron Sucrose 100 mg/ Sodium (Chloride) 105 mls @ 105 mls/hr IVPB DAILY [facility] Ondansetron HCl (Zofran Inj) 4 mg IVP Q6 PRN PRN Reason: Nausea/Vomiting Pantoprazole Sodium (Protonix Ec Tab) 40 mg PO DAILY [facility] Last Admin: 08/16/17 09:00 Dose: 40 mg - Labs Labs: 08/16/17 04:50 08/16/17 04:50 PT 10.9 Seconds (9.8-13.1) 08/15/17 11:40 INR 1.0 (0.9-1.2) 08/15/17 11:40 APTT 31.1 Seconds (25.6-37.1) 08/15/17 11:40 - Neurological Exam Neurological Exam: Abnormal Gait, Alert, Awake, CN II-XII Intact, Oriented x3 Neuro motor strength exam: Left Upper Extremity: 5, Right Upper Extremity: 4, Left Lower Extremity: 5, Right Lower Extremity: 4 Additional comments: NIHSS= 2 Assessment and Plan (1) CVA (cerebral vascular accident) Assessment & Plan: I discussed the findings of the CTA with neuroradiology and agree that there is likely stenosis of the MCA and MARLA on the left side consistent with possible vasculopathy. Thrombus is less likely. I would like to obtain a diagnostic cerebral angiogram for further evaluation. I will discuss this with Dr. Alcala ( neurointerventional). In the mean time, she will be given magnesium sulfate 2 grams IV, and dual anti-platelet agents (aspirin 81 and plavix 75) as well as a low dose of verapamil (80 mg Q12). Status: Acute
[2017-08-16] MEDS ORDERED: Magnesium Sulfate 2 GM in Sodium Chloride 0.9% 100 ML IVPB ONE (15:57)
[2017-08-16] MEDS ORDERED: Magnesium Sulfate 2 gm/50 ml 2 GM/50 ML BAG IVPB ONE (16:15)
[2017-08-17 05:31] LABS: HEMATOCRIT 29.9 % (34.0-47.0); MEAN CELL VOLUME 70.1 fl (81.0-99.0); MEAN CORPUSCULAR HEMOGLOBIN 20.8 pg (27.0-31.0); MEAN CORPUSCULAR HGB CONC 29.7 g/dL (33.0-37.0); RED CELL DISTRIBUTION WIDTH 19.6 % (11.5-14.5); WHITE BLOOD COUNT 6.8 K/uL (4.8-10.8)
[2017-08-17 05:47] LABS: BLOOD UREA NITROGEN 13 mg/dl (7-17); CALCIUM 8.7 mg/dL (8.4-10.2); CARBON DIOXIDE 27 mmol/L (22-30); CHLORIDE 106 mmol/L (98-107); GFR AFRICAN-AMERICAN > 60; GLUCOSE,RANDOM 85 mg/dL (65-105); SODIUM 140 mmol/l (132-148)
--- NOTE | 2017-08-17 07:08 | CP.PCM.PN ---
Subjective - Date & Time of Evaluation Date of Evaluation: 08/17/17 Time of Evaluation: 07:06 - Subjective Subjective: ms. Bowman was seen and examined at the bedside. She is alert, oriented. She denies any headache, dizziness, lightheadedness, nausea, or vomiting. She is able to follow simple commands. She has slight facial droop and states of improved weakness in comparison from admission.There was no untoward events overnight. Objective - Vital Signs/Intake and Output Vital Signs (last 24 hours): Temp Pulse Resp BP Pulse Ox 98.0 F 64 18 99/65 L 99 08/17/17 05:26 08/17/17 05:26 08/17/17 05:26 08/17/17 05:26 08/17/17 05:26 - Medications Medications: Current Medications Acetaminophen (Tylenol 325mg Tab) 650 mg PO Q6 PRN PRN Reason: Pain, Mild (1-3) Last Admin: 08/15/17 22:18 Dose: 650 mg Acetaminophen (Tylenol 325mg Tab) 650 mg PO Q6 PRN PRN Reason: Fever >100.4 F Aspirin (Aspirin Chewable) 81 mg PO DAILY [facility] Last Admin: 08/16/17 08:59 Dose: 81 mg Atorvastatin Calcium (Lipitor) 40 mg PO DAILY [facility] Last Admin: 08/16/17 13:59 Dose: 40 mg Clopidogrel Bisulfate (Plavix) 75 mg PO DAILY [facility] Last Admin: 08/16/17 14:04 Dose: 75 mg Clopidogrel Bisulfate (Plavix) 75 mg PO DAILY [facility] Last Admin: 08/16/17 18:42 Dose: Not Given Enoxaparin Sodium (Lovenox) 40 mg SC DAILY [facility] PRN Reason: Protocol Last Admin: 08/16/17 08:59 Dose: 40 mg Iron Sucrose 100 mg/ Sodium (Chloride) 105 mls @ 105 mls/hr IVPB DAILY [facility] Ondansetron HCl (Zofran Inj) 4 mg IVP Q6 PRN PRN Reason: Nausea/Vomiting Pantoprazole Sodium (Protonix Ec Tab) 40 mg PO DAILY [facility] Last Admin: 08/16/17 09:00 Dose: 40 mg Verapamil HCl (Calan Tab) 80 mg PO BID [facility] Last Admin: 08/16/17 18:00 Dose: 80 mg - Labs Labs: 08/17/17 04:25 08/17/17 04:25 PT 10.9 Seconds (9.8-13.1) 08/15/17 11:40 INR 1.0 (0.9-1.2) 08/15/17 11:40 APTT 31.1 Seconds (25.6-37.1) 08/15/17 11:40 - Constitutional Appears: No Acute Distress - Head Exam Head Exam: ATRAUMATIC - Neurological Exam Neurological Exam: Alert, Awake, Oriented x3 Additional comments: Abnormal Gait, Alert, Awake, CN II-XII Intact, Oriented x3 Neuro motor strength exam: Left Upper Extremity: 5, Right Upper Extremity: 4, Left Lower Extremity: 5, Right Lower Extremity: 4 NIHSS= 2 Assessment and Plan (1) CVA (cerebral vascular accident) Assessment & Plan: Case discussed with Dr. Gimenez, continue all current medical and physical therapies. Recommend OT eval and treat. Will follow up with her possible cerebral angiogram with Dr. Alcala. Status: Acute
--- NOTE | 2017-08-17 09:32 | CP.PCM.CON ---
History of Present Illness - History of Present Illness History of Present Illness: This 37-year- old female,, works in housekeeping arrived in the emergency room complaining of severe headache followed by intense pain in the left side of her face followed by discomfort on the right side of her face and right arm this was accompanied by severe speech deficit and she could not express was clearly. These symptoms resolved over the course of 24 hours. She gives history of similar occurrence which involved headache and numbness of her face and inability to close her right eye approximately 15 years back which was worked up in the emergency room for hospital and the patient was sent home without any intervention. The patient has been symptom-free for last 15 years. She is physically extremely active and in fact goes to the gym regularly and is able to exercise without any difficulty. She denies any palpitations or lightheaded spells area she is not taking any medications. She is not a smoker. Her sister had complained of headaches and numbness of the face few years back as well. Physical examination shows a pleasant young female who is alert awake weren't and afebrile. At this point she has no symptoms. Her telemetry shows steady sinus rhythm with heart rates in mid 40s when she is at rest and particularly during night. There are no tachycardia arrhythmias. No AV conduction abnormalities. Her blood pressure was 116/70 mmHg. Her jugular venous pressure was not elevated and there was no edema over her lower extremities. The pedal pulses were well felt. There were no carotid bruits. [place] was not palpable. The first and second heart sounds were normal. There were no murmurs there was no gallop there were no rales. Abdomen was soft liver and spleen are not palpable. Her electrocardiogram showed sinus rhythm with a normal EKG pattern. Her echocardiogram including a bubble study did not reveal any evidence of interatrial or interventricular shunt. Her left ventricular systolic function was preserved there was no significant valvular abnormality detected. The lab results show microcytic hypochromic anemia and her serum iron is low indicating iron deficiency anemia probably related to her menstrual periods. Her liver function and kidney function are normal. Workup is underway for hypercoagulability. CT scan and MRI findings indicate a recent embolic event with ischemic infarct. Impression: Cerebrovascular accident of embolic origin. Hypercoagulability, tachyarrhythmias and interatrial shunt are being considered as potential etiologies. The patient will require long-term cardiac monitoring with loop recorder, a technology not available at this institution. I will make inquiries as to the availability of this. In the meantime the patient is being treated with aspirin and Plavix. thank you Past Patient History - Past Medical History & Family History Past Medical History?: Yes - Past Social History Smoking Status: Never Smoked - CARDIAC Hx Cardiac Disorders: No - PULMONARY Hx Respiratory Disorders: No - NEUROLOGICAL Hx Neurological Disorder: Yes (Facial paralysis) - HEENT Hx HEENT Problems: No - RENAL Hx Chronic Kidney Disease: No - ENDOCRINE/METABOLIC Hx Endocrine Disorders: No - HEMATOLOGICAL/ONCOLOGICAL Hx Blood Disorders: No - INTEGUMENTARY Hx Dermatological Problems: No - MUSCULOSKELETAL/RHEUMATOLOGICAL Hx Musculoskeletal Disorders: No Hx Falls: No - GENITOURINARY/GYNECOLOGICAL Hx Genitourinary Disorders: No - PSYCHIATRIC Hx Psychophysiologic Disorder: No Hx Substance Use: No - SURGICAL HISTORY Hx Surgeries: No - ANESTHESIA Hx Anesthesia: No Meds Allergies/Adverse Reactions: Allergies Allergy/AdvReac Type Severity Reaction Status Date / Time No Known Allergies Allergy Verified 08/15/17 10:28 - Medications Medications: Current Medications Acetaminophen (Tylenol 325mg Tab) 650 mg PO Q6 PRN PRN Reason: Pain, Mild (1-3) Last Admin: 08/15/17 22:18 Dose: 650 mg Acetaminophen (Tylenol 325mg Tab) 650 mg PO Q6 PRN PRN Reason: Fever >100.4 F Aspirin (Aspirin Chewable) 81 mg PO DAILY [facility] Last Admin: 08/16/17 08:59 Dose: 81 mg Atorvastatin Calcium (Lipitor) 40 mg PO DAILY [facility] Last Admin: 08/16/17 13:59 Dose: 40 mg Clopidogrel Bisulfate (Plavix) 75 mg PO DAILY [facility] Last Admin: 08/16/17 14:04 Dose: 75 mg Clopidogrel Bisulfate (Plavix) 75 mg PO DAILY [facility] Last Admin: 08/16/17 18:42 Dose: Not Given Enoxaparin Sodium (Lovenox) 40 mg SC DAILY [facility] PRN Reason: Protocol Last Admin: 08/16/17 08:59 Dose: 40 mg Iron Sucrose 100 mg/ Sodium (Chloride) 105 mls @ 105 mls/hr IVPB DAILY [facility] Ondansetron HCl (Zofran Inj) 4 mg IVP Q6 PRN PRN Reason: Nausea/Vomiting Pantoprazole Sodium (Protonix Ec Tab) 40 mg PO DAILY [facility] Last Admin: 08/16/17 09:00 Dose: 40 mg Verapamil HCl (Calan Tab) 80 mg PO BID [facility]TON[facility] Last Admin: 08/16/17 18:00 Dose: 80 mg Results - Vital Signs Recent Vital Signs: Last Vital Signs Temp 97.5 F L 08/17/17 08:37 Pulse 55 L 08/17/17 08:37 Resp 18 08/17/17 08:37 BP 121/70 08/17/17 08:37 Pulse Ox 98 08/17/17 08:37 - Labs Result Diagrams: 08/17/17 04:25 08/17/17 04:25 Labs: Laboratory Results - last 24 hr 08/16/17 08/16/17 08/16/17 10:59 10:59 10:59 WBC RBC Hgb Hct MCV MCH MCHC RDW Plt Count Retic Count 1.5 Sodium Potassium Chloride Carbon Dioxide Anion Gap BUN Creatinine Est GFR ( Amer) Est GFR (Non-Af Amer) Random Glucose Calcium Iron 16 L TIBC 376 % Saturation 4 L Transferrin 313.37 Ferritin Urine Opiates Screen Urine Methadone Screen Ur Barbiturates Screen Ur Phencyclidine Scrn Ur Amphetamines Screen U Benzodiazepines Scrn U Oth Cocaine Metabols U Cannabinoids Screen 08/16/17 08/16/17 08/17/17 10:59 15:44 04:25 WBC 6.8 RBC 4.26 Hgb 8.9 L Hct 29.9 L MCV 70.1 L MCH 20.8 L MCHC 29.7 L RDW 19.6 H Plt Count 287 Retic Count Sodium Potassium Chloride Carbon Dioxide Anion Gap BUN Creatinine Est GFR ( Amer) Est GFR (Non-Af Amer) Random Glucose Calcium Iron TIBC % Saturation Transferrin Ferritin 5.2 L Urine Opiates Screen Negative Urine Methadone Screen Negative Ur Barbiturates Screen Negative Ur Phencyclidine Scrn Negative Ur Amphetamines Screen Negative U Benzodiazepines Scrn Negative U Oth Cocaine Metabols Negative U Cannabinoids Screen Negative 08/17/17 04:25 WBC RBC Hgb Hct MCV MCH MCHC RDW Plt Count Retic Count Sodium 140 Potassium 4.0 Chloride 106 Carbon Dioxide 27 Anion Gap 11 BUN 13 Creatinine 0.6 L Est GFR ( Amer) > 60 Est GFR (Non-Af Amer) > 60 Random Glucose 85 Calcium 8.7 Iron TIBC % Saturation Transferrin Ferritin Urine Opiates Screen Urine Methadone Screen Ur Barbiturates Screen Ur Phencyclidine Scrn Ur Amphetamines Screen U Benzodiazepines Scrn U Oth Cocaine Metabols U Cannabinoids Screen
[2017-08-17] MEDS: Enoxaparin 40 mg Syringe SC SCH (10:00)
[2017-08-17] MEDS: Pantoprazole 40 mg EC Tab PO SCH (10:00)
--- NOTE | 2017-08-17 10:05 | CARD ---
APPROVED REPORT EXAM: Two-dimensional and M-mode echocardiogram with Doppler and color Doppler. Other Information Quality : GoodRhythm : NSR INDICATION CVA/TIA Echo Enhancing Agent Indication: Rule Out Septal Defect Agent/Amount Used: Agitated Saline 2D DIMENSIONS IVSd1.08 (0.7-1.1cm)LVDd4.43 (3.9-5.9cm) LVOT Diameter2.02 (1.8-2.4cm)PWd0.94 (0.7-1.1cm) IVSs1.49 (0.8-1.2cm)LVDs3.02 (2.5-4.0cm) FS (%) 31.8 %PWs1.48 (0.8-1.2cm) M-Mode DIMENSIONS Left Atrium (MM)4.35 (2.5-4.0cm)IVSd0.82 (0.7-1.1cm) Aortic Root2.71 (2.2-3.7cm)LVDd5.41 (4.0-5.6cm) Aortic Cusp Exc.2.00 (1.5-2.0cm)PWd0.91 (0.7-1.1cm) IVSs1.47 cmFS (%) 38 % LVDs3.38 (2.0-3.8cm)PWs1.26 cm Mitral Valve MV E Zqydaodb50.2cm/sMV DECEL [id number] A Gfyyxmoh62.1cm/s MV DFB59tdU/A ratio1.8MVA (PHT)3.30cm2 TDI Lateral E' Peak V14.59cm/sMedial E' Peak V9.21cm/sE/Lateral E'5.1 E/Medial E'8.1 Pulmonary Valve PV Peak Nhnyqdsa746.4cm/s LEFT VENTRICLE The left ventricle is normal size. There is normal left ventricular wall thickness. The left ventricular function is normal. The left ventricular ejection fraction is 60% There is normal LV segmental wall motion. The left ventricular diastolic function is normal. No left ventricle thrombus noted on this study. There is no ventricular septal defect visualized. There is no left ventricular aneurysm. There is no mass noted in the left ventricle. RIGHT VENTRICLE The right ventricle is normal size. There is normal right ventricular wall thickness. The right ventricular systolic function is normal. ATRIA The left atrium size is normal. The right atrium size is normal. The interatrial septum is intact with no evidence for an atrial septal defect. AORTIC VALVE The aortic valve is normal in structure. No aortic regurgitation is present. There is no aortic valvular stenosis. There is no aortic valvular vegetation. MITRAL VALVE The mitral valve is normal in structure. There is no evidence of mitral valve prolapse. There is no mitral valve stenosis. There is no mitral valve regurgitation noted. TRICUSPID VALVE The tricuspid valve is normal in structure. There is no tricuspid valve regurgitation noted. There is no tricuspid valve prolapse or vegetation. There is no tricuspid valve stenosis. PULMONIC VALVE The pulmonary valve is normal in structure. There is no pulmonic valvular regurgitation. There is no pulmonic valvular stenosis. GREAT VESSELS The aortic root is normal in size. The ascending aorta is normal in size. The IVC is normal in size and collapses >50% with inspiration. PERICARDIAL EFFUSION The pericardium appears normal. There is no pleural effusion. <Conclusion> Normal Echocardiogram No ASD present Normal Bubble Study
--- NOTE | 2017-08-17 11:55 | CARD ---
APPROVED REPORT EKG Measurement Heart [id number] <Conclusion> Sinus bradycardia Otherwise normal ECG
--- NOTE | 2017-08-17 13:42 | CP.PCM.PN ---
<Anthony Mullins - Last Filed: 08/17/17 15:44> Subjective - Date & Time of Evaluation Date of Evaluation: 08/17/17 Time of Evaluation: 13:38 - Subjective Subjective: 37 year old female with PMHx of chronic right sided facial droop x 16 years seen at bedside for acute right arm weakness and numbness secondary to embolic CVA vs. vasculopathy. Patient is AAO x 3 and NAD resting comfortably in bed. States that she does not have a headache today and that her right arm weakness/ numbness continues to improve. Denies any acute overnight events or new symptoms. Denies N/V/F/C/CP/SOB/posterior calf pain/constipation/urinary retention. Objective - Vital Signs/Intake and Output Vital Signs (last 24 hours): Temp Pulse Resp BP Pulse Ox 98.2 F 53 L 20 104/66 99 08/17/17 13:00 08/17/17 13:00 08/17/17 13:00 08/17/17 13:00 08/17/17 13:00 - Medications Medications: Current Medications Acetaminophen (Tylenol 325mg Tab) 650 mg PO Q6 PRN PRN Reason: Pain, Mild (1-3) Last Admin: 08/15/17 22:18 Dose: 650 mg Acetaminophen (Tylenol 325mg Tab) 650 mg PO Q6 PRN PRN Reason: Fever >100.4 F Aspirin (Aspirin Chewable) 81 mg PO DAILY [facility] Last Admin: 08/17/17 10:00 Dose: 81 mg Atorvastatin Calcium (Lipitor) 40 mg PO DAILY [facility] Last Admin: 08/17/17 10:00 Dose: 40 mg Clopidogrel Bisulfate (Plavix) 75 mg PO DAILY [facility] Last Admin: 08/17/17 10:00 Dose: 75 mg Clopidogrel Bisulfate (Plavix) 75 mg PO DAILY [facility] Last Admin: 08/17/17 10:05 Dose: Not Given Enoxaparin Sodium (Lovenox) 40 mg SC DAILY [facility] PRN Reason: Protocol Last Admin: 08/17/17 10:00 Dose: 40 mg Iron Sucrose 100 mg/ Sodium (Chloride) 105 mls @ 105 mls/hr IVPB DAILY [facility] Ondansetron HCl (Zofran Inj) 4 mg IVP Q6 PRN PRN Reason: Nausea/Vomiting Pantoprazole Sodium (Protonix Ec Tab) 40 mg PO DAILY [facility] Last Admin: 08/17/17 10:00 Dose: 40 mg Verapamil HCl (Calan Tab) 80 mg PO BID [facility]TON[facility] Last Admin: 08/17/17 10:00 Dose: 80 mg - Labs Labs: 08/17/17 04:25 08/17/17 04:25 PT 10.9 Seconds (9.8-13.1) 08/15/17 11:40 INR 1.0 (0.9-1.2) 08/15/17 11:40 APTT 31.1 Seconds (25.6-37.1) 08/15/17 11:40 - Constitutional Appears: Well, Non-toxic, No Acute Distress - Head Exam Head Exam: ATRAUMATIC, NORMOCEPHALIC - Eye Exam Eye Exam: EOMI, PERRL Pupil Exam: PERRL - ENT Exam ENT Exam: Mucous Membranes Moist - Neck Exam Neck Exam: Full ROM. absent: Tenderness - Respiratory Exam Respiratory Exam: Clear to Ausculation Bilateral, NORMAL BREATHING PATTERN - Cardiovascular Exam Cardiovascular Exam: REGULAR RHYTHM - GI/Abdominal Exam GI & Abdominal Exam: Soft. absent: Distended, Firm, Guarding, Rigid - Rectal Exam Rectal Exam: Deferred - Extremities Exam Extremities Exam: Normal Inspection - Neurological Exam Neurological Exam: Alert, Awake, Oriented x3 - Psychiatric Exam Psychiatric exam: Normal Affect, Normal Mood - Skin Skin Exam: Intact, Normal Color, Warm Assessment and Plan - Assessment and Plan (Free Text) Assessment: 37 year old female with history of right sided facial parasthesia seen in ED on 08/15 for new onset right arm numbness and weakness. Head CT performed with f/u carotid artery US and MRI of brain showing multiple small foci of diffusion restriction in the left brain with the largest focus seen at the posterior left parietal lobe. Findings suggestive of acute embolic infarctions. No evidence of acute intracranial hemmorhage, mass effect or midline shift. Carotid artery US 08/26: Normal duplex doppler of the cervical carotid and vertebral arteries. Brain MRI 08/16 shows multiple small foci of diffusion restriction in the left brain with the largest focus seen at the posterior left parietal lobe. Findings suggestive of acute embolic infarctions. Echo with bubble study ordered with results showing normal echocardiogram, no ASD present, normal bubble sudy. patient clinically improved , denies any headache or arm numbness. Microcytic anemia secondary to heavy menstrual bleeding and iron deficiency-anemia work up showed very depleted iron stores. Given 200 mg IV and 100 mg daily CTA neck and brain: 1. Segmental severe narrowing in the left proxiaml M1 segment and focal narrowing in the left proximal A1 segment. Mild narrowing of the distal left M1 segment. 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 Coagulopathy work up still pending. Discussed with neurology Dr. Gimenez. Continue ASA and patient started on Plavix 75 mg PO daily , lipitor 40 mg PO daily Pt to go to [facility] for cerebral angiogram with Dr. Alcala, tentatively scheduled for Tuesday08/19/17 Patient may need loop recorder implant on discharge. Plan: 1. Acute embolic CVA - Cardiology Consult: Dr. Ryan - Neuro Consult: Dr. Gimenez - Continue Aspirin 81 mg PO daily - Continue Lipitor 40 mg PO daily - Continue Plavix 75 mg PO daily - Continue Lovenox 40 mg SC daily - Continue Verapamil 80 mg PO bid - DC magnesium sulfate - Tox screen negative - F/u coagulopathy studies - Head CT: No acute intracranial hemmorhage. Questionable on age indeterminate infarct left posterior superior parietal cortical/subcortical white matter near the vertex. F/u MRI recommended - MRI brain doppler: Multiple small foci of diffusion restriction in the left brain with the largest focus seen at the posterior left parietal lobe. Findings suggestive of acute embolic infarctions. No evidence of acute intracranial hemmorhage, mass effect or midline shift. - Carotid artery US: No acute abnormalities noted - Echo with bubble study: normal echocardiogram, no ASD present, normal bubble sudy - CTA neck and brain: Segmental severe narrowing in the left proxiaml M1 segment and focal narrowing in the left proximal A1 segment. Mild narrowing of the distal left M1 segment. 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 - Pt to go to [facility] for cerebral angiogram with Dr. Alcala, tentatively scheduled for Tuesday08/19/17 - Continue Heart Healthy Diet - Neuro check q4 - Vital signs q4 - Continue PT eval and treat - Pt will need loop recorder on discharge 2. Anemia - H/H, 8.9/29.9 - Microcytic in nature - Ferritin 313.37 - Transferrin 5.2 - Continue Iron sucrose 100mg IV daily 3. DVT prophylaxis - SCDs - Continue Aspirin, Lipitor, Plavix <Curry Zaragoza - Last Filed: 08/17/17 15:59> Objective - Vital Signs/Intake and Output Vital Signs (last 24 hours): Temp Pulse Resp BP Pulse Ox 98.2 F 53 L 20 104/66 99 08/17/17 13:00 08/17/17 13:00 08/17/17 13:00 08/17/17 13:00 08/17/17 13:00 - Medications Medications: Current Medications Acetaminophen (Tylenol 325mg Tab) 650 mg PO Q6 PRN PRN Reason: Pain, Mild (1-3) Last Admin: 08/15/17 22:18 Dose: 650 mg Acetaminophen (Tylenol 325mg Tab) 650 mg PO Q6 PRN PRN Reason: Fever >100.4 F Aspirin (Aspirin Chewable) 81 mg PO DAILY [facility] Last Admin: 08/17/17 10:00 Dose: 81 mg Atorvastatin Calcium (Lipitor) 40 mg PO DAILY [facility] Last Admin: 08/17/17 10:00 Dose: 40 mg Clopidogrel Bisulfate (Plavix) 75 mg PO DAILY [facility] Last Admin: 08/17/17 10:00 Dose: 75 mg Clopidogrel Bisulfate (Plavix) 75 mg PO DAILY [facility] Last Admin: 08/17/17 10:05 Dose: Not Given Enoxaparin Sodium (Lovenox) 40 mg SC DAILY [facility] PRN Reason: Protocol Last Admin: 08/17/17 10:00 Dose: 40 mg Iron Sucrose 100 mg/ Sodium (Chloride) 105 mls @ 105 mls/hr IVPB DAILY [facility] Last Admin: 08/17/17 13:00 Dose: 105 mls/hr Ondansetron HCl (Zofran Inj) 4 mg IVP Q6 PRN PRN Reason: Nausea/Vomiting Pantoprazole Sodium (Protonix Ec Tab) 40 mg PO DAILY [facility] Last Admin: 08/17/17 10:00 Dose: 40 mg Verapamil HCl (Calan Tab) 80 mg PO BID [facility] Last Admin: 08/17/17 10:00 Dose: 80 mg - Labs Labs: 08/17/17 04:25 08/17/17 04:25 PT 10.9 Seconds (9.8-13.1) 08/15/17 11:40 INR 1.0 (0.9-1.2) 08/15/17 11:40 APTT 31.1 Seconds (25.6-37.1) 08/15/17 11:40 Assessment and Plan - Assessment and Plan (Free Text) Plan: Patient seen and examined with resident. I fully agree with documentation as noted by the resident.
[2017-08-17 23:05] LABS: COAG FACTOR VIII ACTIVITY 308 % (50-180)
[2017-08-18] MEDS ORDERED: Magnesium Sulfate 2 gm/50 ml 2 GM/50 ML BAG IVPB ONE (06:26)
--- NOTE | 2017-08-18 06:37 | CP.PCM.PN ---
Subjective - Date & Time of Evaluation Date of Evaluation: 08/18/17 Time of Evaluation: 06:31 - Subjective Subjective: Ms. Bowman was seen and examined at the bedside. She is alert, oriented in all spheres. She still has a minimal right facial droop with right side weakness. She states of experiencing dizziness especially with change of position with accompanying minimal headache in the frontal area, non radiating, with pain scale 2/10. She further states of experiencing dizziness with ambulation, but denies when turning her head from side to side. Her blood pressure has been in the 90's and low 100's.She si able to follow simple commands.She denies any blurred vision, nausea, or vomiting. She states of normal appetite. She is aware of her possible cerebral angiogram durga. in [facility]. There was no untoward events overnight. Objective - Vital Signs/Intake and Output Vital Signs (last 24 hours): Temp Pulse Resp BP Pulse Ox 98.9 F 62 18 101/66 100 08/18/17 05:30 08/18/17 05:30 08/18/17 05:30 08/18/17 05:30 08/18/17 05:30 - Medications Medications: Current Medications Acetaminophen (Tylenol 325mg Tab) 650 mg PO Q6 PRN PRN Reason: Pain, Mild (1-3) Last Admin: 08/15/17 22:18 Dose: 650 mg Acetaminophen (Tylenol 325mg Tab) 650 mg PO Q6 PRN PRN Reason: Fever >100.4 F Aspirin (Aspirin Chewable) 81 mg PO DAILY [facility] Last Admin: 08/17/17 10:00 Dose: 81 mg Atorvastatin Calcium (Lipitor) 40 mg PO DAILY [facility] Last Admin: 08/17/17 10:00 Dose: 40 mg Clopidogrel Bisulfate (Plavix) 75 mg PO DAILY [facility] Last Admin: 08/17/17 10:00 Dose: 75 mg Enoxaparin Sodium (Lovenox) 40 mg SC DAILY [facility] PRN Reason: Protocol Last Admin: 08/17/17 10:00 Dose: 40 mg Iron Sucrose 100 mg/ Sodium (Chloride) 105 mls @ 105 mls/hr IVPB DAILY [facility] Last Admin: 08/17/17 13:00 Dose: 105 mls/hr Magnesium Sulfate 2 gm/ Sodium (Chloride) 104 mls @ 104 mls/hr IVPB ONCE ONE PRN Reason: 2 GM/HR Stop: 08/18/17 07:25 Sodium Chloride (Sodium Chloride 0.9%) 1,000 mls @ 100 mls/hr IV .Q10H [facility] Stop: 08/19/17 06:30 Ondansetron HCl (Zofran Inj) 4 mg IVP Q6 PRN PRN Reason: Nausea/Vomiting Pantoprazole Sodium (Protonix Ec Tab) 40 mg PO DAILY [facility] Last Admin: 08/17/17 10:00 Dose: 40 mg Verapamil HCl (Calan Tab) 80 mg PO BID [facility] Last Admin: 08/17/17 17:00 Dose: Not Given - Labs Labs: 08/17/17 04:25 08/17/17 04:25 PT 10.9 Seconds (9.8-13.1) 08/15/17 11:40 INR 1.0 (0.9-1.2) 08/15/17 11:40 APTT 31.1 Seconds (25.6-37.1) 08/15/17 11:40 - Constitutional Appears: No Acute Distress - Head Exam Head Exam: ATRAUMATIC - Neurological Exam Neurological Exam: Alert, Awake, Oriented x3 Neuro motor strength exam: Left Upper Extremity: 5, Right Upper Extremity: 4, Left Lower Extremity: 5, Right Lower Extremity: 4 Additional comments: She is able to answer questions appropriately and follow simple commands. She remains with slight right facial droop. Sensation remains intact. Assessment and Plan (1) CVA (cerebral vascular accident) Assessment & Plan: Case discussed with Dr. Gimenez, recommends NS at 100 ml/hr to help her with her positional dizziness, Magnesium 2 gm. IVPB for one dose for her headache. Repeat CT of the head without contrast if headache worsen. Orthostatic vital signs.Continue all other medical, physical, occupational, and speech therapies. Status: Acute
[2017-08-18] MEDS: Sodium Chloride 0.9% 1,000 ML IV SCH ×2 (06:39→17:15)
[2017-08-18] MEDS ORDERED: Dexamethasone 10 MG in Sodium Chloride 0.9% 50 ML IV ONE (07:00)
[2017-08-18] MEDS: Enoxaparin 40 mg Syringe SC SCH (09:52)
[2017-08-18] MEDS: Pantoprazole 40 mg EC Tab PO SCH (09:59)
--- NOTE | 2017-08-18 10:12 | CP.PCM.PN ---
Subjective - Date & Time of Evaluation Date of Evaluation: 08/18/17 Time of Evaluation: 10:10 - Subjective Subjective: 37 year old female with PMHx of chronic right sided facial droop x 16 years seen at bedside for acute right arm weakness and numbness secondary to embolic CVA vs. vasculopathy. Patient is AAO x 3 and NAD resting comfortably in bed. States that she only has a small headache today and that her right arm weakness/ numbness continues to improve. States that this morning when she woke up to use the bathroom she had a brief stint of nausea and dizziness. Says that she received fluids and medication afterwards and now feels much better with no nausea and no dizziness with change in position. Denies N/V/F/C/CP/SOB/ posterior calf pain/constipation/urinary retention. Objective - Vital Signs/Intake and Output Vital Signs (last 24 hours): Temp Pulse Resp BP Pulse Ox 98.2 F 62 20 115/72 98 08/18/17 08:46 08/18/17 09:53 08/18/17 08:46 08/18/17 09:53 08/18/17 08:46 - Medications Medications: Current Medications Acetaminophen (Tylenol 325mg Tab) 650 mg PO Q6 PRN PRN Reason: Pain, Mild (1-3) Last Admin: 08/18/17 06:46 Dose: 650 mg Acetaminophen (Tylenol 325mg Tab) 650 mg PO Q6 PRN PRN Reason: Fever >100.4 F Aspirin (Aspirin Chewable) 81 mg PO DAILY [facility] Last Admin: 08/18/17 09:59 Dose: 81 mg Atorvastatin Calcium (Lipitor) 40 mg PO DAILY [facility] Last Admin: 08/18/17 09:59 Dose: 40 mg Clopidogrel Bisulfate (Plavix) 75 mg PO DAILY [facility] Last Admin: 08/18/17 09:53 Dose: 75 mg Enoxaparin Sodium (Lovenox) 40 mg SC DAILY [facility] PRN Reason: Protocol Last Admin: 08/18/17 09:52 Dose: 40 mg Iron Sucrose 100 mg/ Sodium (Chloride) 105 mls @ 105 mls/hr IVPB DAILY [facility] Last Admin: 08/17/17 13:00 Dose: 105 mls/hr Sodium Chloride (Sodium Chloride 0.9%) 1,000 mls @ 100 mls/hr IV .Q10H [facility] Stop: 08/19/17 06:30 Last Admin: 08/18/17 06:39 Dose: 100 mls/hr Ondansetron HCl (Zofran Inj) 4 mg IVP Q6 PRN PRN Reason: Nausea/Vomiting Pantoprazole Sodium (Protonix Ec Tab) 40 mg PO DAILY [facility] Last Admin: 08/18/17 09:59 Dose: 40 mg Verapamil HCl (Calan Tab) 80 mg PO BID [facility] Last Admin: 08/18/17 09:53 Dose: 80 mg - Labs Labs: 08/17/17 04:25 08/17/17 04:25 PT 10.9 Seconds (9.8-13.1) 08/15/17 11:40 INR 1.0 (0.9-1.2) 08/15/17 11:40 APTT 31.1 Seconds (25.6-37.1) 08/15/17 11:40 - Constitutional Appears: Well, Non-toxic, No Acute Distress - Head Exam Head Exam: ATRAUMATIC, NORMOCEPHALIC - Eye Exam Eye Exam: EOMI, PERRL Pupil Exam: PERRL - ENT Exam ENT Exam: Mucous Membranes Moist - Neck Exam Neck Exam: Normal Inspection. absent: Tenderness - Respiratory Exam Respiratory Exam: Clear to Ausculation Bilateral, NORMAL BREATHING PATTERN - Cardiovascular Exam Cardiovascular Exam: REGULAR RHYTHM - GI/Abdominal Exam GI & Abdominal Exam: Soft. absent: Guarding, Rigid, Tenderness - Rectal Exam Rectal Exam: Deferred - Extremities Exam Extremities Exam: Normal Inspection. absent: Calf Tenderness - Neurological Exam Neurological Exam: Alert, Awake, Oriented x3 - Psychiatric Exam Psychiatric exam: Normal Affect, Normal Mood - Skin Skin Exam: Intact, Normal Color, Warm Assessment and Plan - Assessment and Plan (Free Text) Assessment: 37 year old female with history of right sided facial parasthesia seen in ED on 08/15 for new onset right arm numbness and weakness. Head CT performed with f/u carotid artery US and MRI of brain showing multiple small foci of diffusion restriction in the left brain with the largest focus seen at the posterior left parietal lobe. Findings suggestive of acute embolic infarctions. No evidence of acute intracranial hemmorhage, mass effect or midline shift. Carotid artery US 08/26: Normal duplex doppler of the cervical carotid and vertebral arteries. Brain MRI 08/16 shows multiple small foci of diffusion restriction in the left brain with the largest focus seen at the posterior left parietal lobe. Findings suggestive of acute embolic infarctions. Echo with bubble study ordered with results showing normal echocardiogram, no ASD present, normal bubble sudy. patient clinically improved , denies any headache or arm numbness. Microcytic anemia secondary to heavy menstrual bleeding and iron deficiency-anemia work up showed very depleted iron stores. Given 200 mg IV and 100 mg daily CTA neck and brain: Segmental severe narrowing in the left proxiaml M1 segment and focal narrowing in the left proximal A1 segment. Mild narrowing of the distal left M1 segment. 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 Coagulopathy work up still pending. Discussed with neurology Dr. Gimenez. Continue ASA and patient started on Plavix 75 mg PO daily , lipitor 40 mg PO daily Patient experieced brief episode of nausea and dizziness with standing in am . Symptoms relieved with IVF and Mg Sulf Pt to go to [facility] for cerebral angiogram with Dr. Alcala, tentatively scheduled for Tuesday08/19/17 Patient may need loop recorder implant on discharge. Plan: 1. Acute embolic CVA - Cardiology Consult: Dr. Ryan - Neuro Consult: Dr. Gimenez - Continue Aspirin 81 mg PO daily - Continue Lipitor 40 mg PO daily - Continue Plavix 75 mg PO daily - Continue Lovenox 40 mg SC daily - Continue Verapamil 80 mg PO bid - Tox screen negative - Factor VIII activity: 308 - F/u coagulopathy studies - Head CT: No acute intracranial hemmorhage. Questionable on age indeterminate infarct left posterior superior parietal cortical/subcortical white matter near the vertex. F/u MRI recommended - MRI brain doppler: Multiple small foci of diffusion restriction in the left brain with the largest focus seen at the posterior left parietal lobe. Findings suggestive of acute embolic infarctions. No evidence of acute intracranial hemmorhage, mass effect or midline shift. - Carotid artery US: No acute abnormalities noted - Echo with bubble study: normal echocardiogram, no ASD present, normal bubble sudy - CTA neck and brain: Segmental severe narrowing in the left proxiaml M1 segment and focal narrowing in the left proximal A1 segment. Mild narrowing of the distal left M1 segment. 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 - Pt to go to [facility] for cerebral angiogram with Dr. Alcala, tentatively scheduled for Tuesday08/19/17 - NPO diet after midnight except meds - Neuro check q4 - Vital signs q4 - Continue PT eval and treat - Pt will need loop recorder on discharge 2. Anemia - H/H, 8.9/29.9 - Microcytic in nature - Ferritin 313.37 - Transferrin 5.2 - Continue Iron sucrose 100mg IV daily 3. DVT prophylaxis - SCDs - Continue Aspirin, Lipitor, Plavix 4. Nausea/dizziness - Continue Zofran prn - NS 1 L Q10
[2017-08-18 20:56] LABS: B2 GLYCOPROTEIN I AB(IGA) >150 SAU (<=20); B2 GLYCOPROTEIN I AB(IGG) 51 SGU (<=20); B2 GLYCOPROTEIN I AB(IGM) 13 SMU (<=20)
[2017-08-19 00:24] LABS: CARDIOLIPIN AB (IGA) <11 APL (<=11)
[2017-08-19 05:40] LABS: PHOSPHATIDYLSERINE AB IGA <20 U/mL (<20); PHOSPHATIDYLSERINE AB IGM <25 U/mL (<25)
--- NOTE | 2017-08-19 07:49 | CP.PCM.PN ---
Subjective - Date & Time of Evaluation Date of Evaluation: 08/19/17 Time of Evaluation: 07:46 - Subjective Subjective: Ms. Bowman was seen and examined at the bedside. She is alert, oriented in all spheres. She denies any headache, dizziness, lightheadedness, nause, or vomiting. She firther states of the IVF yesterday help her with her dizziness. She is schedule for cerebral angiogram this afternoon in [facility]. Transfer pick up man was re-schedule at 13:00. She verbalize understanding of her procedure this afternoon.There was no untoward events overnight. Objective - Vital Signs/Intake and Output Vital Signs (last 24 hours): Temp Pulse Resp BP Pulse Ox 98 F 58 L 18 108/68 99 08/19/17 05:28 08/19/17 05:28 08/19/17 05:28 08/19/17 05:28 08/19/17 05:28 - Medications Medications: Current Medications Acetaminophen (Tylenol 325mg Tab) 650 mg PO Q6 PRN PRN Reason: Pain, Mild (1-3) Last Admin: 08/18/17 06:46 Dose: 650 mg Acetaminophen (Tylenol 325mg Tab) 650 mg PO Q6 PRN PRN Reason: Fever >100.4 F Aspirin (Aspirin Chewable) 81 mg PO DAILY [facility] Last Admin: 08/18/17 09:59 Dose: 81 mg Atorvastatin Calcium (Lipitor) 40 mg PO DAILY [facility] Last Admin: 08/18/17 09:59 Dose: 40 mg Clopidogrel Bisulfate (Plavix) 75 mg PO DAILY [facility] Last Admin: 08/18/17 09:53 Dose: 75 mg Enoxaparin Sodium (Lovenox) 40 mg SC DAILY [facility] PRN Reason: Protocol Last Admin: 08/18/17 09:52 Dose: 40 mg Iron Sucrose 100 mg/ Sodium (Chloride) 105 mls @ 105 mls/hr IVPB DAILY [facility] Last Admin: 08/18/17 17:16 Dose: 105 mls/hr Ondansetron HCl (Zofran Inj) 4 mg IVP Q6 PRN PRN Reason: Nausea/Vomiting Pantoprazole Sodium (Protonix Ec Tab) 40 mg PO DAILY [facility] Last Admin: 08/18/17 09:59 Dose: 40 mg Verapamil HCl (Calan Tab) 80 mg PO BID [facility] Last Admin: 12/21/17 17:16 Dose: 80 mg - Labs Labs: 08/17/17 04:25 08/17/17 04:25 PT 10.9 Seconds (9.8-13.1) 08/15/17 11:40 INR 1.0 (0.9-1.2) 08/15/17 11:40 APTT 31.1 Seconds (25.6-37.1) 08/15/17 11:40 - Constitutional Appears: No Acute Distress - Head Exam Head Exam: ATRAUMATIC - Neurological Exam Neurological Exam: Alert, Awake, Normal Gait, Oriented x3 Neuro motor strength exam: Left Upper Extremity: 5, Right Upper Extremity: 3, Left Lower Extremity: 5, Right Lower Extremity: 4 Additional comments: with minimal right facial droop, improving right arm and lower extremities weakness. Sensation remains intact. Assessment and Plan (1) CVA (cerebral vascular accident) Status: Acute
[2017-08-19 08:29] VITALS: RESP 20; O2SAT 100
[2017-08-19] MEDS: Enoxaparin 40 mg Syringe SC SCH ×2 (09:03→10:59)
[2017-08-19] MEDS: Pantoprazole 40 mg EC Tab PO SCH (09:03)
[2017-08-19] MEDS: Sodium Chloride 0.9% 1,000 ML IV SCH (09:04)
--- NOTE | 2017-08-19 09:08 | CP.PCM.PN ---
Subjective - Date & Time of Evaluation Date of Evaluation: 08/19/17 Time of Evaluation: 09:06 - Subjective Subjective: 37 year old female with PMHx of chronic right sided facial droop x 16 years seen at bedside for acute right arm weakness and numbness secondary to embolic CVA vs. vasculopathy. Patient is AAO x 3 and NAD resting comfortably in bed. States that she had another small headache last night and was given medicine which relieved her symptoms. States that the numbness/weakness in her right arm is resolved at this time. Denies any nausea or dizziness since yesterday morning. Denies N/V/F/C/CP/SOB/posterior calf pain/constipation/urinary retention. Objective - Vital Signs/Intake and Output Vital Signs (last 24 hours): Temp Pulse Resp BP Pulse Ox 98.2 F 78 20 102/69 100 08/19/17 08:00 08/19/17 09:04 08/19/17 08:00 08/19/17 09:04 08/19/17 08:00 - Medications Medications: Current Medications Acetaminophen (Tylenol 325mg Tab) 650 mg PO Q6 PRN PRN Reason: Pain, Mild (1-3) Last Admin: 08/18/17 06:46 Dose: 650 mg Acetaminophen (Tylenol 325mg Tab) 650 mg PO Q6 PRN PRN Reason: Fever >100.4 F Aspirin (Aspirin Chewable) 81 mg PO DAILY [facility] Last Admin: 08/19/17 09:04 Dose: 81 mg Atorvastatin Calcium (Lipitor) 40 mg PO DAILY [facility] Last Admin: 08/19/17 09:04 Dose: 40 mg Clopidogrel Bisulfate (Plavix) 75 mg PO DAILY [facility] Last Admin: 08/19/17 09:04 Dose: 75 mg Iron Sucrose 100 mg/ Sodium (Chloride) 105 mls @ 105 mls/hr IVPB DAILY [facility] Last Admin: 08/18/17 17:16 Dose: 105 mls/hr Ondansetron HCl (Zofran Inj) 4 mg IVP Q6 PRN PRN Reason: Nausea/Vomiting Pantoprazole Sodium (Protonix Ec Tab) 40 mg PO DAILY [facility] Last Admin: 08/19/17 09:03 Dose: 40 mg Verapamil HCl (Calan Tab) 80 mg PO BID [facility] Last Admin: 08/19/17 09:04 Dose: 80 mg - Labs Labs: 08/17/17 04:25 08/17/17 04:25 PT 10.9 Seconds (9.8-13.1) 08/15/17 11:40 INR 1.0 (0.9-1.2) 08/15/17 11:40 APTT 31.1 Seconds (25.6-37.1) 08/15/17 11:40 - Constitutional Appears: Well, Non-toxic, No Acute Distress - Head Exam Head Exam: ATRAUMATIC, NORMOCEPHALIC - Eye Exam Eye Exam: EOMI, PERRL Pupil Exam: PERRL - ENT Exam ENT Exam: Mucous Membranes Moist - Neck Exam Neck Exam: Normal Inspection. absent: Tenderness - Respiratory Exam Respiratory Exam: Clear to Ausculation Bilateral, NORMAL BREATHING PATTERN - Cardiovascular Exam Cardiovascular Exam: REGULAR RHYTHM - GI/Abdominal Exam GI & Abdominal Exam: Soft. absent: Firm, Guarding, Rigid, Tenderness - Rectal Exam Rectal Exam: Deferred - Extremities Exam Extremities Exam: Normal Inspection - Neurological Exam Neurological Exam: Alert, Awake, Oriented x3 - Psychiatric Exam Psychiatric exam: Normal Affect, Normal Mood - Skin Skin Exam: Intact, Normal Color, Warm Assessment and Plan - Assessment and Plan (Free Text) Assessment: 37 year old female with history of right sided facial parasthesia seen in ED on 08/15 for new onset right arm numbness and weakness. Head CT performed with f/u carotid artery US and MRI of brain showing multiple small foci of diffusion restriction in the left brain with the largest focus seen at the posterior left parietal lobe. Findings suggestive of acute embolic infarctions. No evidence of acute intracranial hemmorhage, mass effect or midline shift. Carotid artery US 08/26: Normal duplex doppler of the cervical carotid and vertebral arteries. Brain MRI 08/16 shows multiple small foci of diffusion restriction in the left brain with the largest focus seen at the posterior left parietal lobe. Findings suggestive of acute embolic infarctions. Echo with bubble study ordered with results showing normal echocardiogram, no ASD present, normal bubble sudy. patient clinically improved , denies any headache or arm numbness. Microcytic anemia secondary to heavy menstrual bleeding and iron deficiency-anemia work up showed very depleted iron stores. Given 200 mg IV and 100 mg daily CTA neck and brain: Segmental severe narrowing in the left proxiaml M1 segment and focal narrowing in the left proximal A1 segment. Mild narrowing of the distal left M1 segment. 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 Coagulopathy work up still pending. Discussed with neurology Dr. Gimenez. Continue ASA and patient started on Plavix 75 mg PO daily , lipitor 40 mg PO daily Patient experieced brief episode of nausea and dizziness with standing in am . Symptoms relieved with IVF and Mg Sulf Pt. given 10mg dexamethasone for headache experienced late on 08/18 with relief of symptoms Pt NPO since last night Patient for cerebral angiogram today at [facility]. Will return to [facility] following procedure Patient may need loop recorder implant on discharge. Plan: 1. Acute embolic CVA - Cardiology Consult: Dr. Ryan - Neuro Consult: Dr. Gimenez - Continue Aspirin 81 mg PO daily - Continue Lipitor 40 mg PO daily - Continue Plavix 75 mg PO daily - Continue Lovenox 40 mg SC daily - Continue Verapamil 80 mg PO bid - Tox screen negative - Factor VIII activity: 308 - Beta 2 glycoprotein Ab > 150 - Beta 2 GPI IgG Ab > 51 - F/u coagulopathy studies - Given decadron 10mg x 1 dose for headache last night - Head CT: No acute intracranial hemmorhage. Questionable on age indeterminate infarct left posterior superior parietal cortical/subcortical white matter near the vertex. F/u MRI recommended - MRI brain doppler: Multiple small foci of diffusion restriction in the left brain with the largest focus seen at the posterior left parietal lobe. Findings suggestive of acute embolic infarctions. No evidence of acute intracranial hemmorhage, mass effect or midline shift. - Carotid artery US: No acute abnormalities noted - Echo with bubble study: normal echocardiogram, no ASD present, normal bubble sudy - CTA neck and brain: Segmental severe narrowing in the left proxiaml M1 segment and focal narrowing in the left proximal A1 segment. Mild narrowing of the distal left M1 segment. 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 - Pt to go to [facility] for cerebral angiogram with Dr. Alcala today - NPO since last night - Neuro check q4 - Vital signs q4 - Continue PT eval and treat - Pt will need loop recorder on discharge 2. Anemia - H/H, 8.9/29.9 - Microcytic in nature - Ferritin 313.37 - Transferrin 5.2 - Continue Iron sucrose 100mg IV daily 3. DVT prophylaxis - SCDs - Continue Aspirin, Lipitor, Plavix 4. Nausea/dizziness - Continue Zofran prn - NS 1 L Q10
--- NOTE | 2017-08-19 11:20 | CP.PCM.DIS ---
Provider - Provider Date of Admission: 08/16/17 20:28 Attending physician: Jelani Chauhan MD Primary care physician: Dr. Rachel Castellon Consults: Cardiology: Dr. Ryan Neurology: Dr. Gimenez Interventional Neurology: Dr. Alcala Time Spent in preparation of Discharge (in minutes): 15 Diagnosis - Discharge Diagnosis (1) Anemia Status: Acute (2) CVA (cerebral vascular accident) Status: Acute Priority: High Hospital Course - Lab Results Lab Results: Most Recent Lab Values WBC 6.8 K/uL (4.8-10.8) 08/17/17 04:25 RBC 4.26 Mil/uL (3.80-5.20) 08/17/17 04:25 Hgb 8.9 g/dL (12.0-16.0) L 08/17/17 04:25 Hct 29.9 % (34.0-47.0) L 08/17/17 04:25 MCV 70.1 fl (81.0-99.0) L 08/17/17 04:25 MCH 20.8 pg (27.0-31.0) L 08/17/17 04:25 MCHC 29.7 g/dL (33.0-37.0) L 08/17/17 04:25 RDW 19.6 % (11.5-14.5) H 08/17/17 04:25 Plt Count 287 K/uL (130-400) 08/17/17 04:25 MPV 9.2 fl (7.2-11.7) 08/16/17 04:50 Neut % (Auto) 43.8 % (50.0-75.0) L 08/16/17 04:50 Lymph % (Auto) 43.0 % (20.0-40.0) H 08/16/17 04:50 [place] % (Auto) 8.8 % (0.0-10.0) 08/16/17 04:50 Eos % (Auto) 4.1 % (0.0-4.0) H 08/16/17 04:50 Baso % (Auto) 0.3 % (0.0-2.0) 08/16/17 04:50 Neut # 3.0 K/uL (1.8-7.0) 08/16/17 04:50 Lymph # 2.9 K/uL (1.0-4.3) 08/16/17 04:50 [place] # 0.6 K/uL (0.0-0.8) 08/16/17 04:50 Eos # 0.3 K/uL (0.0-0.7) 08/16/17 04:50 Baso # 0.0 K/uL (0.0-0.2) 08/16/17 04:50 Retic Count 1.5 % (0.5-1.5) 08/16/17 10:59 PT 10.9 Seconds (9.8-13.1) 08/15/17 11:40 INR 1.0 (0.9-1.2) 08/15/17 11:40 APTT 31.1 Seconds (25.6-37.1) 08/15/17 11:40 Antithrombin III Activ 116 % activity (80-120) 08/16/17 08:57 Factor V see note 08/15/17 18:29 Factor VIII Activity 308 % (50-180) H 08/15/17 18:29 Sodium 140 mmol/l (132-148) 08/17/17 04:25 Potassium 4.0 MMOL/L (3.6-5.0) 08/17/17 04:25 Chloride 106 mmol/L (98-107) 08/17/17 04:25 Carbon Dioxide 27 mmol/L (22-30) 08/17/17 04:25 Anion Gap 11 (10-20) 08/17/17 04:25 BUN 13 mg/dl (7-17) 08/17/17 04:25 Creatinine 0.6 mg/dl (0.7-1.2) L 08/17/17 04:25 Est GFR ( Amer) > 60 08/17/17 04:25 Est GFR (Non-Af Amer) > 60 08/17/17 04:25 POC Glucose (mg/dL) 93 mg/dL (65-110) 08/15/17 10:44 Random Glucose 85 mg/dL (65-105) 08/17/17 04:25 Hemoglobin A1c 5.3 % (4.2-6.5) 08/15/17 18:27 Calcium 8.7 mg/dL (8.4-10.2) 08/17/17 04:25 Iron 16 ug/dL (37-170) L 08/16/17 10:59 TIBC 376 ug/dL (250-450) 08/16/17 10:59 % Saturation 4 % (20-55) L 08/16/17 10:59 Transferrin 313.37 mg/dL (206-381) 08/16/17 10:59 Ferritin 5.2 ng/Ml (6.24-137.0) L 08/16/17 10:59 Total Bilirubin 0.2 mg/dl (0.2-1.3) 08/15/17 11:40 AST 19 U/L (14-36) 08/15/17 11:40 ALT 33 U/L (9-52) 08/15/17 11:40 Alkaline Phosphatase 69 U/L (38-126) 08/15/17 11:40 Troponin I < 0.0120 ng/mL (0.00-0.120) 08/15/17 11:40 NT-Pro-B Natriuret Pep 96.1 pg/ml (0-450) 08/15/17 11:40 Total Protein 7.1 G/DL (6.3-8.2) 08/15/17 11:40 Albumin 3.8 g/dL (3.5-5.0) 08/15/17 11:40 Globulin 3.3 gm/dL (2.2-3.9) 08/15/17 11:40 Albumin/Globulin Ratio 1.1 (1.0-2.1) 08/15/17 11:40 Triglycerides 135 mg/DL (0-149) 08/15/17 11:40 Cholesterol 167 mg/dL (0-199) 08/15/17 11:40 LDL Cholesterol Direct 91 mg/dL (0-129) 08/15/17 11:40 HDL Cholesterol 38 MG/DL (30-70) 08/15/17 11:40 Vitamin B12 > 1000 pg/mL (239-931) H 08/15/17 18:29 25-OH Vitamin D Total 24.7 NG/ML (30.0-100.0) L 08/15/17 18:29 Folate > 20.0 ng/mL 08/15/17 18:29 Homocysteine 5.5 umol/L ( <10.4) 08/15/17 18:29 TSH 3rd Generation 4.90 mIU/ML (0.46-4.68) H 08/16/17 04:50 Urine Color Yellow (YELLOW) 08/15/17 11:08 Urine Clarity Cloudy (Clear) 08/15/17 11:08 Urine pH 6.0 (5.0-8.0) 08/15/17 11:08 Ur Specific [place] 1.011 (1.003-1.030) 08/15/17 11:08 Urine Protein Negative mg/dL (NEGATIVE) 08/15/17 11:08 Urine Glucose (UA) Neg mg/dL (Normal) 08/15/17 11:08 Urine Ketones Negative mg/dL (NEGATIVE) 08/15/17 11:08 Urine Blood Negative (NEGATIVE) 08/15/17 11:08 Urine Nitrate Negative (NEGATIVE) 08/15/17 11:08 Urine Bilirubin Negative (NEGATIVE) 08/15/17 11:08 Urine Urobilinogen 0.2-1.0 mg/dL (0.2-1.0) 08/15/17 11:08 Ur Leukocyte Esterase Neg [place]/uL (Negative) 08/15/17 11:08 Urine RBC (Auto) < 1 /hpf (0-3) 08/15/17 11:08 Urine Microscopic WBC 1 /hpf (0-5) 08/15/17 11:08 Ur Squamous Epith Cells 2 /hpf (0-5) 08/15/17 11:08 Urine Bacteria Rare (<OCC) 08/15/17 11:08 Urine Opiates Screen Negative (NEGATIVE) 08/16/17 15:44 Urine Methadone Screen Negative (NEGATIVE) 08/16/17 15:44 Ur Barbiturates Screen Negative (NEGATIVE) 08/16/17 15:44 Ur Phencyclidine Scrn Negative (NEGATIVE) 08/16/17 15:44 Ur Amphetamines Screen Negative (NEGATIVE) 08/16/17 15:44 U Benzodiazepines Scrn Negative (NEGATIVE) 08/16/17 15:44 U Oth Cocaine Metabols Negative (NEGATIVE) 08/16/17 15:44 U Cannabinoids Screen Negative (NEGATIVE) 08/16/17 15:44 Fxcb-1-Fgulxvggyqth Ab >150 [facility] (<=20) H 08/16/17 08:57 Beta-2 GPI IgG Ab 51 SGU (<=20) H 08/16/17 08:57 Beta-2 GPI IgM Ab 13 SMU (<=20) 08/16/17 08:57 Phosphatidylserine IgG <10 U/mL (<10) 08/16/17 08:57 Phosphatidylserine IgA <20 U/mL (<20) 08/16/17 08:57 Phosphatidylserine IgM <25 U/mL (<25) 08/16/17 08:57 Anti-Phospholipid Intrp see note 08/16/17 08:57 Anti-Cardiolipin IgG Ab <14 GPL (<=14) 08/16/17 08:57 Anti-Cardiolipin IgA Ab <11 APL (<=11) 08/16/17 08:57 Anti-Cardiolipin IgM Ab <12 MPL (<=12) 08/16/17 08:57 Prothrombin Mut Interp see note 08/15/17 18:29 Prothrombin Gene Mutate see note 08/15/17 18:29 Prothromb Gene Review see note 08/15/17 18:29 Blood Type O POSITIVE 08/15/17 11:40 Blood Type Confirm O POSITIVE 08/15/17 12:00 Antibody Screen Negative 08/15/17 11:40 BBK History Checked No verified bt 08/15/17 11:40 - Hospital Course Hospital Course: 37 year old female with history of right sided facial parasthesia seen in ED on 08/15 for new onset right arm numbness and weakness. Head CT performed with f/u carotid artery US and MRI of brain showing multiple small foci of diffusion restriction in the left brain with the largest focus seen at the posterior left parietal lobe. Findings suggestive of acute embolic infarctions. No evidence of acute intracranial hemmorhage, mass effect or midline shift. Carotid artery US 08/26: Normal duplex doppler of the cervical carotid and vertebral arteries. Brain MRI 08/16 shows multiple small foci of diffusion restriction in the left brain with the largest focus seen at the posterior left parietal lobe. Findings suggestive of acute embolic infarctions. Echo with bubble study ordered with results showing normal echocardiogram, no ASD present, normal bubble sudy. patient clinically improved , denies any headache or arm numbness. Microcytic anemia secondary to heavy menstrual bleeding and iron deficiency-anemia work up showed very depleted iron stores. Given 200 mg IV and 100 mg daily CTA neck and brain: Segmental severe narrowing in the left proxiaml M1 segment and focal narrowing in the left proximal A1 segment. Mild narrowing of the distal left M1 segment. 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 Coagulopathy work up still pending. Discussed with neurology Dr. Gimenez. Continue ASA and patient started on Plavix 75 mg PO daily , lipitor 40 mg PO daily Patient experieced brief episode of nausea and dizziness with standing in am . Symptoms relieved with IVF and Mg Sulf Pt. given 10mg dexamethasone for headache experienced late on 08/18 with relief of symptoms Pt NPO since last night Patient was scheduled for cerebral angiogram today at [facility] with Dr. Alcala but will now be discharged from [facility] and will have the procedure done as an outpatient Patient may need loop recorder implant on final discharge. 1. Acute embolic CVA - Cardiology Consult: Dr. Ryan - Neuro Consult: Dr. Gimenez - Continue Aspirin 81 mg PO daily - Continue Lipitor 40 mg PO daily - Continue Plavix 75 mg PO daily - Continue Lovenox 40 mg SC daily - Continue Verapamil 80 mg PO bid - Tox screen negative - Factor VIII activity: 308 - Beta 2 glycoprotein Ab > 150 - Beta 2 GPI IgG Ab > 51 - F/u coagulopathy studies - Given decadron 10mg x 1 dose for headache last night - Head CT: No acute intracranial hemmorhage. Questionable on age indeterminate infarct left posterior superior parietal cortical/subcortical white matter near the vertex. F/u MRI recommended - MRI brain doppler: Multiple small foci of diffusion restriction in the left brain with the largest focus seen at the posterior left parietal lobe. Findings suggestive of acute embolic infarctions. No evidence of acute intracranial hemmorhage, mass effect or midline shift. - Carotid artery US: No acute abnormalities noted - Echo with bubble study: normal echocardiogram, no ASD present, normal bubble sudy - CTA neck and brain: Segmental severe narrowing in the left proxiaml M1 segment and focal narrowing in the left proximal A1 segment. Mild narrowing of the distal left M1 segment. 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 - Pt to go to [facility] for cerebral angiogram with Dr. Alcala today - NPO since last night - Neuro check q4 - Vital signs q4 - Continue PT eval and treat - Pt will need loop recorder on discharge 2. Anemia - H/H, 8.9/29.9 - Microcytic in nature - Ferritin 313.37 - Transferrin 5.2 - Continue Iron sucrose 100mg IV daily 3. DVT prophylaxis - SCDs - Continue Aspirin, Lipitor, Plavix 4. Nausea/dizziness - Continue Zofran prn - NS 1 L Q10 - Date & Time of H&P Date of H&P: 08/19/17 Time of H&P: 11:22 Discharge Exam - Head Exam Head Exam: ATRAUMATIC, NORMOCEPHALIC - Eye Exam Eye Exam: EOMI, PERRL Pupil Exam: PERRL - ENT Exam ENT Exam: Mucous Membranes Moist - Neck Exam Neck exam: Normal Inspection - Respiratory Exam Respiratory Exam: Clear to PA & Lateral, NORMAL BREATHING PATTERN - Cardiovascular Exam Cardiovascular Exam: REGULAR RHYTHM - GI/Abdominal Exam GI & Abdominal Exam: Soft. absent: Distended, Firm, Guarding, Tenderness - Rectal Exam Rectal Exam: Deferred - Extremities Exam Extremities exam: normal inspection - Neurological Exam Neurological exam: Alert, Oriented x3 - Psychiatric Exam Psychiatric exam: Normal Affect, Normal Mood - Skin Skin Exam: Intact, Normal Color, Warm Discharge Plan - Follow Up Plan Condition: STABLE Disposition: Trans to Other Acute Care [facility] Additional Instructions: Patient to be discharged from [facility] and will have her cerebral angiogram as an outpatient
[2017-08-19 13:05] VITALS: BP 119/73; PULSE 53; TEMP 98.1
== END 2017-08-19 13:00 | disposition short-term general hospital (02) | DRG 14 ==
LOC: H.ER 10:09 → H.ERHOLD 13:23 → H.TEL 16:24 → OBSVTOIN 08-16 20:28
PROVIDERS: ADMIT Hospitalist; ATTEND Hospitalist
DX: I63.40 Cerebral infarction due to embolism of unspecified cerebral artery (principal); D50.0 Iron deficiency anemia secondary to blood loss (chronic); N92.0 Excessive and frequent menstruation with regular cycle; R29.810 Facial weakness

== ENCOUNTER 2017-10-09 20:22 | Emergency (ER) | payer MEDICAID, OTHER, SELFPAY ==
[2017-10-09 20:22] VITALS: BMI 34.3
[2017-10-09 20:34] VITALS: TEMP 98.1; O2SAT 99
[2017-10-09] MEDS ORDERED: Sodium Chloride 0.9% 1,000 ML IV STA (21:22)
--- NOTE | 2017-10-09 22:04 | ED PDOC ---
HPI: Abdomen Time Seen by Provider: 10/09/17 20:37 Chief Complaint (Nursing): Abdominal Pain Chief Complaint (Provider): Suprapubic abdominal pain since this am History Per: Patient History/Exam Limitations: no limitations Onset/Duration Of Symptoms: Hrs Outside of [place] travel?: No Current Symptoms Are (Timing): Still Present Quality Of Discomfort: Cramping, Other ("Like giving ") Associated Symptoms: Nausea, Loss Of Appetite. denies: Fever, Chills, Vomiting Exacerbating Factors: None Alleviating Factors: None Additional Complaint(s): Pt states that she began getting cramping in the suprapubic region this morning. Pt states it is associated with her menses and feels like severe period cramps similar to giving . 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 Pt reports some nausea, no vomiting. No change in BM. No vaginal discharge. No pain with intercourse. Past Medical History Reviewed: Historical Data, Nursing Documentation, Vital Signs Vital Signs: Last Vital Signs Temp 98.1 F 10/09/17 20:32 Pulse 70 10/09/17 20:32 Resp 18 10/09/17 20:32 BP 115/77 10/09/17 20:32 Pulse Ox 99 10/09/17 22:08 - Medical History PMH: No Chronic Diseases Denies: Chronic Kidney Disease - Surgical History Surgical History: No Surg Hx - Family History Family History: States: Unknown Family Hx - Living Arrangements Living Arrangements: With Family - Social History Current smoker - smoking cessation education provided: No - Home Medications Home Medications: Ambulatory Orders Medication Instructions Recorded Ascorbic Acid [Vitamin C] 500 mg PO DAILY #30 tab 08/20/17 Aspirin [Aspirin Chewable] 81 mg PO DAILY #30 chew 08/20/17 Atorvastatin [Lipitor] 40 mg PO DAILY #30 tab 08/20/17 Clopidogrel [Plavix] 75 mg PO DAILY #30 tab 08/20/17 Docusate Sodium [Colace] 100 mg PO BID #60 capsule 08/20/17 Ferrous Sulfate 325 mg PO TID #90 tablet 08/20/17 Multivitamin [Chewable-Iwona] 1 tab PO DAILY #30 tab 08/20/17 Verapamil [Calan Tab] 40 mg PO Q12 #60 tab 08/20/17 Acetaminophen with Codeine 1 tab PO Q6H PRN #15 tab 10/10/17 [Tylenol with Codeine No. 3 300 mg-30 mg] - Allergies Allergies/Adverse Reactions: Allergies Allergy/AdvReac Type Severity Reaction Status Date / Time No Known Allergies Allergy Verified 08/15/17 10:28 Review of Systems ROS Statement: Except As Marked, All Systems Reviewed And Found Negative Constitutional: Negative for: Fever, Chills Genitourinary Female: Positive for: Vaginal Bleeding (Menses ). Negative for: Dysuria, Frequency, Incontinence Physical Exam - Reviewed Nursing Documentation Reviewed: Yes Vital Signs Reviewed: Yes - Physical Exam Appears: Positive for: Well, Non-toxic, No Acute Distress Head Exam: Positive for: ATRAUMATIC, NORMAL INSPECTION, NORMOCEPHALIC Skin: Positive for: Normal Color, Warm, DRY Eye Exam: Positive for: Normal appearance ENT: Positive for: Normal ENT Inspection Neck: Positive for: Normal, Painless ROM Cardiovascular/Chest: Positive for: Regular Rate, Rhythm Respiratory: Positive for: CNT, Normal Breath Sounds Gastrointestinal/Abdominal: Positive for: Normal Exam, Bowel Sounds, Soft, Tenderness (Suprapubic) Back: Positive for: Normal Inspection Extremity: Positive for: Normal ROM. Negative for: Tenderness Neurologic/Psych: Positive for: Alert, Oriented - Laboratory Results Result Diagrams: 10/09/17 21:50 10/09/17 21:50 - ECG O2 Sat by Pulse Oximetry: 99 Disposition - Clinical Impression Clinical Impression: Fibroids - Patient ED Disposition Is Patient to be Admitted: No Counseled Patient/Family Regarding: Diagnosis, Need For Followup - Disposition Referrals: Mehdi Alves [Staff Provider] - Disposition: Routine/Home Disposition Time: 01:39 Condition: GOOD Prescriptions: Acetaminophen with Codeine [Tylenol with Codeine No. 3 300 mg-30 mg] 1 tab PO Q6H PRN #15 tab PRN Reason: Pain, Severe (8-10) Instructions: Uterine Fibroids (ED) Forms: Naytev (Portuguese) Print Language: CROATIAN
[2017-10-09 22:08] LABS: BASO % 0.1 % (0.0-2.0); EOS # 0.1 K/uL (0.0-0.7); EOS % 0.9 % (0.0-4.0); HEMOGLOBIN 10.9 g/dL (12.0-16.0); LYMPH # 1.1 K/uL (1.0-4.3); LYMPH % 9.1 % (20.0-40.0); MEAN CELL VOLUME 85.2 fl (81.0-99.0); MEAN CORPUSCULAR HEMOGLOBIN 27.5 pg (27.0-31.0); MEAN CORPUSCULAR HGB CONC 32.3 g/dL (33.0-37.0); MONO # 0.6 K/uL (0.0-0.8); MONO % 4.7 % (0.0-10.0); NEUT # 10.2 K/uL (1.8-7.0); NEUT % 85.2 % (50.0-75.0); PLATELET COUNT 247 K/uL (130-400); RBC 3.96 Mil/uL (3.80-5.20); RED CELL DISTRIBUTION WIDTH 21.4 % (11.5-14.5)
[2017-10-09 22:13] LABS: ALB/GLOB RATIO 1.2 (1.0-2.1); ALBUMIN 3.9 g/dL (3.5-5.0); ALT/SGPT 30 U/L (9-52); AST/SGOT 24 U/L (14-36); BLOOD UREA NITROGEN 9 mg/dl (7-17); GFR AFRICAN-AMERICAN > 60; GFR NON-AFRICAN AMERICAN > 60
[2017-10-09 22:51] LABS: ANISOCYTOSIS SLIGHT; EOSINOPHIL 1 % (0-7); LYMPHOCYTE 10 % (20-50); MONOCYTE 5 % (0-10); NEUTROPHIL 84 % (42-75); PLATELET ESTIMATE NORMAL (NORMAL); POIKILOCYTOSIS SLIGHT; TOTAL CELLS COUNTED 100
[2017-10-10] MEDS ORDERED: Iohexol 300 100 ML IJ ONE (00:15)
[2017-10-10] MEDS ORDERED: Sodium Chloride 0.9% 50 ML IV ONE (00:16)
--- NOTE | 2017-10-10 01:25 | CT ---
EXAM: CT Abdomen and Pelvis With Intravenous Contrast EXAM DATE/TIME: 10/10/2017 12:10 AM CLINICAL HISTORY: 37 years old, female; Pain; Abdominal pain; Generalized; Additional info: Pelvic mass most likely large fibroid seen on prior sonography Abdominal pain, elevated wbc, vomiting TECHNIQUE: Axial computed tomography images of the abdomen and pelvis with intravenous contrast. All CT scans at this facility use one or more dose reduction techniques, viz.: automated exposure control; ma/kV adjustment per patient size (including targeted exams where dose is matched to indication; i.e. head); or iterative reconstruction technique. Coronal and sagittal reformatted images were created and reviewed. CONTRAST: 95 mL of [id number] administered intravenously. COMPARISON: There are no prior studies for comparison. FINDINGS: Lower thorax: Heart size is normal. There is minimal atelectasis at the lung bases ABDOMEN: Liver: unremarkable Gallbladder and bile ducts: Gallbladder is distended. Common duct is prominent. Pancreas: unremarkable Spleen: unremarkable Adrenals: unremarkable Kidneys and ureters: unremarkable Stomach and bowel: Stomach is incompletely distended which accentuates the gastric wall.Bowel rotation is normal. Small bowel is mildly distended with fluid and air. Small bowel is displaced into the upper abdomen by the pelvic/uterine mass. Ileocecal region is unremarkable.Appendix and terminal ileum are unremarkable.Colon is incompletely distended which limits evaluation. Appendix: See stomach and bowel PELVIS: Bladder: Bladder is almost empty. Reproductive: Uterus is enlarged, 22 x 13 by 16 cm. There is a heterogeneous complex exophytic fundal mass most likely fibroid. Variable attenuation suggest necrosis. Neither ovary can be identified. ABDOMEN and PELVIS: Intraperitoneal space: There is no free air. No significant fluid is seen in the cul-de-sac. There is a small amount of dense fluid in the right upper quadrant. Bones/joints: There are no acute osseous abnormalities. Soft tissues: unremarkable Vasculature: Vascular structures are unremarkable. Lymph nodes: There is shotty para-aortic adenopathy. IMPRESSION: Pelvic mass most likely due to enlarged fibroid uterus, heterogeneous attenuation suggest degeneration/necrosis, nonvisualization of the ovaries, MRI is suggested for further evaluation as clinically indicated; small amount of dense fluid in the right flank could be due to cyst rupture; no acute solid visceral abnormality; probable ileus, no obstruction no bowel obstruction; distended gallbladder
[2017-10-10 02:07] VITALS: PULSE 60; RESP 20
[2017-10-10 02:08] VITALS: BP 102/63
== END 2017-10-10 02:06 | disposition home or self-care (01) ==
LOC: H.ER 20:22
DX: D25.9 Leiomyoma of uterus, unspecified (principal); D72.829 Elevated white blood cell count, unspecified; Z79.82 Long term (current) use of aspirin
CPT/HCPCS: 74177; 80053; 81025; 85025; 96361; 96374; 99283; J2270; J7040; Q9967